=== PATIENT | female | born 1960 | race Caucasian/White ===

== ENCOUNTER 2020-01-21 09:18 | Emergency (ER) | payer OTHER ==
--- NOTE | 2020-01-21 09:20 | ERPHSYRPT ---
- History of Present Illness Time Seen by Provider: 01/21/20 09:20 Source: patient Exam Limitations: no limitations Physician History: This is a 59-year-old white female who fell down her stairs approximately 820 this morning onto her buttocks. She does not complain of any buttock pain belly pain or back pain. She has no neck pain no headache. Her primary complaint is she felt a pop in the anterior sternum and has had pain since that fall. Patient did not have any chest pain history prior to that fall. It hurts to take a deep breath in. Patient is very anxious. Patient takes Dilaudid orally each day. She is not taking any daily. She also takes Phenergan on a daily basis. Occurred: this morning Reason for Fall: slipped Injuries/Pain Location: chest (Anterior midline sternum) Loss of Consciousness: no loss of consciousness Quality: sharpness, stabbing Severity of Pain-Max: moderate Severity of Pain-Current: moderate Associated Symptoms (Fall): chest pain Allergies/Adverse Reactions: No Known Drug Allergies Allergy (Verified 01/21/20 09:53) Home Medications: Gabapentin 600 mg PO TID 01/21/20 [History] Hydromorphone HCl [Dilaudid] 16 mg PO HS 01/21/20 [History] Promethazine HCl 12.5 mg PO TID PRN 01/21/20 [History] Tapentadol HCl [Nucynta] 300 mg PO BID 01/21/20 [History] Travel Risk - International Travel Have you traveled outside of the country in past 3 weeks: No - Coronavirus Screening Are you exhibiting any of the following symptoms?: No Close contact with a COVID-19 positive Pt in past 14-21 Days: No - Review of Systems Constitutional: No Symptoms Eyes: No Symptoms Ears, Nose, & Throat: No Symptoms Respiratory: No Symptoms Cardiac: Chest Pain Abdominal/Gastrointestinal: No Symptoms Genitourinary Symptoms: No Symptoms Musculoskeletal: Fall Skin: No Symptoms Neurological: No Symptoms Psychological: No Symptoms Endocrine: No Symptoms Hematologic/Lymphatic: No Symptoms Immunological/Allergic: No Symptoms All Other Systems: Reviewed and Negative - Past Medical History Pertinent Past Medical History: Yes Neurological History: Other Cardiac History: No Pertinent History Respiratory History: No Pertinent History Endocrine Medical History: No Pertinent History Musculoskeletal History: Other Other Medical History: ANEMIA - BETATHALLACYEMIA MINOR. SCOLISOS - Nursing Vital Signs Nursing Vital Signs: Initial Vital Signs Temperature 97.0 F 01/21/20 09:39 Pulse Rate 90 01/21/20 09:39 Blood Pressure 139/83 01/21/20 09:39 O2 Sat by Pulse Oximetry 96 01/21/20 09:39 Pain Scale Pain Intensity 8 - [place] Coma Score Best Eye Response ([place]): (4) open spontaneously Best Verbal Response ([place]): (5) oriented Best Motor Response ([place]): (6) obeys commands [place] Total: 15 - Physical Exam General Appearance: mild distress, alert, anxiety Head Injury: no evidence of injury Eye Exam: PERRL/EOMI, eyes nml inspection ENT Exam: airway nml, nml ext.inspection Neck Exam: supple, trachea midline, full range of motion, normal alignment, normal inspection Respiratory/Chest Exam: chest tenderness, normal breath sounds, other ( Palpable tenderness present along the distribution of the anterior sternum), No respiratory distress, No crepitus, No rib tenderness, No palpable fracture Cardiovascular Exam: normal heart sounds, regular rate/rhythm, normal peripheral pulses Gastrointestinal Exam: soft, normal bowel sounds, No tenderness Rectal Exam: not done Back Exam: normal inspection, normal range of motion, No CVA tenderness, No vertebral tenderness Extremity Exam: normal inspection, normal range of motion, capillary refill <3 sec, pelvis stable Neurologic Exam: alert, oriented x 3, cooperative, selector packer II-XII nml as tested, normal mood/affect, nml cerebellar function, nml station & gait, sensation nml Skin Exam: normal color, warm, dry SpO2 Interpretation: normal O2 Delivery: Room Air - Course Nursing assessment & vital signs reviewed: Yes EKG Interpreted by Me: RATE (72), Sinus Rhythm, NORMAL AXIS, NORMAL INTERVALS, NORMAL QRS Ordered Tests: Active Orders 24 hr Category Date Time Status CHEST 2 VIEWS (PA AND LAT) Stat Exams 01/21/20 10:03 Completed Medication Summary Discontinued Medications Generic Name Dose Route Start Last Admin Trade Name Freq PRN Reason Stop Dose Admin Hydromorphone HCl 1 mg 01/21/20 10:02 01/21/20 10:08 Hydromorphone 1 Mg/Ml Injection IM 01/21/20 10:03 1 mg STAT ONE Administration Hydromorphone HCl Confirm 01/21/20 10:06 Hydromorphone 1 Mg/Ml Injection Administered 01/21/20 10:07 Dose 1 mg .ROUTE .STK-MED ONE Promethazine HCl 25 mg 01/21/20 10:02 01/21/20 10:07 Phenergan 25 Mg Inj IM 01/21/20 10:03 25 mg STAT ONE Administration Promethazine HCl Confirm 01/21/20 10:05 Phenergan 25 Mg Inj Administered 01/21/20 10:06 Dose 25 mg .ROUTE .STK-MED ONE - Departure Departure Disposition: Home Clinical Impression: Musculoskeletal pain Condition: Stable Critical Care Time: No Referrals: BAIRON HICKEY MD [Primary Care Provider] - Additional Instructions: Take your medication as prescribed. Follow-up with your primary care doctor for further management
[2020-01-21] MEDS ORDERED: Phenergan 25 MG INJ IM ONE (10:02)
[2020-01-21] MEDS ORDERED: Hydromorphone 1 mg/ml Injection IM ONE (10:02)
[2020-01-21] MEDS ORDERED: Phenergan 25 MG INJ ONE (10:05)
[2020-01-21] MEDS ORDERED: Hydromorphone 1 mg/ml Injection ONE (10:06)
--- NOTE | 2020-01-21 10:28 | XRAY ---
Indication: Sternal pain following fall. Comparison: June 25, 2018. PA/lateral chest demonstrates new minimal lingula subsegmental atelectasis/scarring. Remaining heart and lungs normal. Bony thorax intact again with double curvature scoliosis.
[2020-01-21 10:56] VITALS: BP 168/86; PULSE 88; O2SAT 98
== END 2020-01-21 10:55 | disposition home or self-care (01) ==
LOC: ED 09:18
DX: M79.18 Myalgia, other site (principal)
CPT/HCPCS: 71046; 96372; 99284; J1170; J2550

== ENCOUNTER 2020-05-03 11:51 | Emergency (ER) | payer OTHER ==
[2020-05-03 12:06] VITALS: BP 181/91; PULSE 86; O2SAT 97
--- NOTE | 2020-05-03 12:40 | ERPHSYRPT ---
- History of Present Illness Time Seen by Provider: 05/03/20 12:30 Source: patient Patient Subjective Stated Complaint: pt here for wound check, she was in PT and states they where unable to clean wound due to pain , she fell apr 20. pt has puncture wound to left elbow Triage Nursing Assessment: pt alert, walked in, resp easy, skin w/d/p. face mask in place, has punture wound left elbow with slight swelling Physician History: Is a 59-year-old female who presents with a chief complaint of needing a wound check. Of note, the patient reportedly had a mechanical fall and received a laceration to the medial aspect of her left elbow back in March. Since that time, she has been seen by her primary care provider her who referred her to the wound clinic which she was seen today. The physical therapist at the wound clinic reportedly irrigated the wound and was able to take a Q-tip and track about an inch and a half according to the physical therapist in the wound I think she may have hit the ulnar nerve. The patient then refused to letter packed the wound and the physical therapist thought it was best she come to the emergency department to see if I could "numb up the area". Fever, purulent drainage, significant cellulitis, induration or fluctuance. The patient showed me a picture of the wound from when it initially occurred and it appears to be healing well Allergies/Adverse Reactions: No Known Drug Allergies Allergy (Verified 05/03/20 12:06) Home Medications: Gabapentin 600 mg PO TID 01/21/20 [History] Hydromorphone HCl [Dilaudid] 16 mg PO HS 01/21/20 [History] Promethazine HCl 12.5 mg PO TID PRN 01/21/20 [History] Tapentadol HCl [Nucynta] 300 mg PO BID 01/21/20 [History] Mupirocin [Bactroban OINTMENT] 1 ea BID 05/03/20 [History] Hx Tetanus, Diphtheria Vaccination/Date Given: Yes (2010) Hx Influenza Vaccination/Date Given: No Hx Pneumococcal Vaccination/Date Given: No Immunizations Up to Date: Yes Travel Risk - International Travel Have you traveled outside of the country in past 3 weeks: No - Coronavirus Screening Are you exhibiting any of the following symptoms?: No Close contact with a COVID-19 positive Pt in past 14-21 Days: No - Review of Systems Constitutional: No Fever, No Chills Skin: Other (Wound to left elbow) All Other Systems: Reviewed and Negative - Past Medical History Pertinent Past Medical History: Yes Neurological History: Other ENT History: Other Cardiac History: No Pertinent History Respiratory History: No Pertinent History Endocrine Medical History: No Pertinent History Musculoskeletal History: Other Other Medical History: ANEMIA - BETATHALLACYEMIA MINOR, poor vison. SCOLISOS - Past Surgical History Past Surgical History: Yes Gastrointestinal: Appendectomy Female Surgical History: Hysterectomy Other Surgical History: coils placed in head for aneurysm, bladder sling mesh - Social History Smoking Status: Never smoker Exposure to second hand smoke: No Drug Use: none Patient Lives Alone: No - Female History Hx Last Menstrual Period: post Hx Now: No - Nursing Vital Signs Nursing Vital Signs: Initial Vital Signs Temperature 97.2 F 05/03/20 11:56 Pulse Rate 86 05/03/20 11:56 Respiratory Rate 18 05/03/20 11:56 Blood Pressure 181/91 05/03/20 11:56 O2 Sat by Pulse Oximetry 97 05/03/20 11:56 Pain Scale Pain Intensity 5 - Physical Exam General Appearance: no apparent distress, alert Neck Exam: normal inspection Respiratory Exam: normal breath sounds Gastrointestinal/Abdomen Exam: soft Pelvic Exam: not done Back Exam: normal inspection Extremity Exam: normal inspection Neurologic Exam: alert, oriented x 3 Skin Exam: normal color, warm, dry, other (1-2 cm deep wound noted to the medial aspect of the L elbow around the cubital tunnel region.), No rash SpO2 Interpretation: normal SpO2: 97 O2 Delivery: Room Air - Course Nursing assessment & vital signs reviewed: Yes - Progress Progress: unchanged Progress Note: 05/04/20 10:38 Nontoxic in appearance. There appears to be no evidence of surrounding infection. I do not feel that locally anesthetizing the region will be of any benefit. After talking to PT that was cleaning the wound she informed me she may have "hit" the ulnar nerve, which local anesthesia will be of no benefit if PT's intent was for me to anesthetize this area. The patient can be discharged back to to the wound clinic from my standpoint to have her wound dressed. Counseled pt/family regarding: diagnosis, need for follow-up - Departure Departure Disposition: Home Clinical Impression: Visit for wound check Condition: Stable Critical Care Time: No Referrals: NATALIA CHAMBERS [Primary Care Provider] - Instructions: Wound Care (DC)
== END 2020-05-03 12:53 | disposition home or self-care (01) ==
LOC: ED 11:51
DX: Z48.00 Encounter for change or removal of nonsurgical wound dressing (principal)
CPT/HCPCS: 99283

== ENCOUNTER 2020-07-04 07:28 | Inpatient (IN) | payer OTHER ==
[2020-07-04] MEDS ORDERED: SUBLIMAZE 100 MCG/2 ML IV ONE (07:34)
[2020-07-04] MEDS ORDERED: Sodium Chloride 0.9% 1000 ML 1,000 ML IV STA (07:34)
[2020-07-04] MEDS ORDERED: Zofran 4 MG/2 ML VIAL IV ONE ×2 (07:34→10:38)
[2020-07-04] MEDS ORDERED: Sodium Chloride 0.9% 1000 ML 1,000 ML ONE (07:41)
[2020-07-04] MEDS ORDERED: Zofran 4 MG/2 ML VIAL ONE ×2 (07:41→10:38)
[2020-07-04] MEDS ORDERED: SUBLIMAZE 100 MCG/2 ML ONE (07:41)
--- NOTE | 2020-07-04 08:01 | ERPHSYRPT ---
- History of Present Illness Time Seen by Provider: 07/04/20 07:58 Historian: patient Exam Limitations: no limitations Patient Subjective Stated Complaint: abd pain, nausea Triage Nursing Assessment: pt to ED c/o abd pain 10/10 and nauesa onset 0300 this am. pt reports pain progressively worsened since early this am. denies emesis at this time. reports last BM was 07/01/20. states she is still passing gas. pt is thrashing in bed and states "there is something inside me." unable to listen to bowel sounds effectively d/t pain with any pressure on abd. also reports pain radiating to back. Physician History: Patient is 59-year-old female came to the emergency room with sudden onset of nausea vomiting abdominal pain started around 3:00 in the morning and patient came to the emergency room around 8:00 in the morning. Patient is denying any fever chills diarrhea. Patient ate peanut butter sandwich last night. She did not have any symptoms since 3:00 in the morning. Patient denies any other chest pain shortness of breath generalized body ache fever chills. Patient does not have a close exposure to Covid or patient does not have a Covid vaccination. Timing/Duration: today Activities at Onset: none Quality: fullness Abdominal Pain Onset Location: generalized abdomen Pain Radiation: no radiation Severity of Pain-Max: moderate Severity of Pain-Current: moderate Modifying Factors: Improves With: nothing Associated Symptoms: nausea Previous symptoms: no prior history Allergies/Adverse Reactions: No Known Drug Allergies Allergy (Verified 05/03/20 12:06) Home Medications: Gabapentin 600 mg PO TID 01/21/20 [History] Hydromorphone HCl [Dilaudid] 16 mg PO HS 01/21/20 [History] Promethazine HCl 12.5 mg PO TID PRN 01/21/20 [History] Tapentadol HCl [Nucynta] 300 mg PO BID 01/21/20 [History] Mupirocin [Bactroban OINTMENT] 1 ea BID 05/03/20 [History] Hx Tetanus, Diphtheria Vaccination/Date Given: Yes (2010) Hx Influenza Vaccination/Date Given: Yes Hx Pneumococcal Vaccination/Date Given: No Immunizations Up to Date: Yes Travel Risk - International Travel Have you traveled outside of the country in past 3 weeks: No - Coronavirus Screening Are you exhibiting any of the following symptoms?: No Close contact with a COVID-19 positive Pt in past 14-21 Days: No - Vaccine Status Have you recieved a Covid-19 vaccination: No - Review of Systems Constitutional: No Fever, No Chills Eyes: No Symptoms Ears, Nose, & Throat: No Symptoms Respiratory: No Cough, No Dyspnea Cardiac: No Chest Pain, No Edema, No Syncope Abdominal/Gastrointestinal: Abdominal Pain, Nausea, No Vomiting, No Diarrhea Genitourinary Symptoms: No Dysuria Musculoskeletal: No Back Pain, No Neck Pain Skin: No Rash Neurological: No Dizziness, No Focal Weakness, No Sensory Changes Psychological: No Symptoms Endocrine: No Symptoms All Other Systems: Reviewed and Negative - Past Medical History Pertinent Past Medical History: Yes Neurological History: Other ENT History: Other Cardiac History: No Pertinent History Respiratory History: No Pertinent History Endocrine Medical History: No Pertinent History Musculoskeletal History: Other Other Medical History: ANEMIA - BETATHALLACYEMIA MINOR, poor vison. SCOLISOS - Past Surgical History Past Surgical History: Yes Gastrointestinal: Appendectomy Female Surgical History: Hysterectomy Other Surgical History: coils placed in head for aneurysm, bladder sling mesh - Social History Smoking Status: Never smoker Exposure to second hand smoke: No Drug Use: none Patient Lives Alone: No - Nursing Vital Signs Nursing Vital Signs: Initial Vital Signs Temperature 97.2 F 07/04/20 07:32 Pulse Rate 80 07/04/20 07:32 Respiratory Rate 22 07/04/20 07:32 Blood Pressure 144/95 07/04/20 07:32 O2 Sat by Pulse Oximetry 99 07/04/20 07:32 Pain Scale Pain Intensity 10 - Physical Exam General Appearance: no apparent distress, alert Eye Exam: PERRL/EOMI, eyes nml inspection Ears, Nose, Throat Exam: normal ENT inspection, pharynx normal, moist mucous membranes Neck Exam: normal inspection, non-tender, supple, full range of motion Respiratory Exam: normal breath sounds, lungs clear, No respiratory distress Cardiovascular Exam: regular rate/rhythm, normal heart sounds Gastrointestinal/Abdomen Exam: soft, normal bowel sounds, tenderness (generalised), distention, No mass, No guarding, No ecchymosis, No pulsatile mass, No rebound, No hernia, No hepatomegaly, No organomegaly, No splenomegaly, No bruit Pelvic Exam: not done Rectal Exam: deferred Back Exam: normal inspection, normal range of motion, No CVA tenderness, No vertebral tenderness Extremity Exam: normal inspection, normal range of motion, pelvis stable Neurologic Exam: alert, oriented x 3, cooperative, normal mood/affect, nml cerebellar function, sensation nml, No motor deficits Skin Exam: normal color, warm, dry SpO2: 99 - Course Nursing assessment & vital signs reviewed: Yes EKG Interpreted by Me: Sinus Rhythm - Radiology Exams Abdomen X-ray Interpretation: Reviewed by me, Negative (nonspecific gas pattern) Ordered Tests: Active Orders 24 hr Category Date Time Status EKG-ER Only STAT Care 07/04/20 07:34 Active IV Insertion STAT Care 07/04/20 07:34 Active ABDOMEN AND PELVIS W/0 CONTRAS [CT] Stat Exams 07/04/20 08:42 Taken OBSTR/ACUTE ABDOMEN SERIES Stat Exams 07/04/20 07:35 Completed AMYLASE Stat Lab 07/04/20 07:34 Completed CBC W DIFF Stat Lab 07/04/20 07:34 Completed CMP Stat Lab 07/04/20 07:34 Completed LIPASE Stat Lab 07/04/20 07:34 Completed Lactic Acid Stat Lab 07/04/20 07:56 Completed Lactic Acid Stat Lab 07/04/20 09:59 Received Manual Differential NC Stat Lab 07/04/20 07:34 Completed TROPONIN Stat Lab 07/04/20 07:34 Completed UA W/RFX UR CULTURE Stat Lab 07/04/20 08:23 Ordered Urine Triage Profile Stat Lab 07/04/20 08:23 Completed Oxygen Oxymask LPM 4 lpm RT 07/04/20 08:49 Active Medication Summary Discontinued Medications Generic Name Dose Route Start Last Admin Trade Name Sadie PRN Reason Stop Dose Admin Diphenhydramine HCl 25 mg 07/04/20 08:41 07/04/20 08:44 Benadryl 50 Mg/Ml IV 07/04/20 08:42 25 mg STAT ONE Administration Diphenhydramine HCl Confirm 07/04/20 08:43 Benadryl 50 Mg/Ml Administered 07/04/20 08:44 Dose 50 mg .ROUTE .STK-MED ONE Fentanyl Citrate 50 mcg 07/04/20 07:34 07/04/20 07:47 Sublimaze 100 Mcg/2 Ml IV 07/04/20 07:35 50 mcg STAT ONE Administration Fentanyl Citrate Confirm 07/04/20 07:41 Sublimaze 100 Mcg/2 Ml Administered 07/04/20 07:42 Dose 100 mcg .ROUTE .STK-MED ONE Sodium Chloride 1,000 mls @ 999 mls/hr 07/04/20 07:34 07/04/20 07:47 Sodium Chloride 0.9% 1000 Ml IV 07/04/20 08:34 999 mls/hr .Q1H1M STA Administration Sodium Chloride Confirm 07/04/20 07:41 Sodium Chloride 0.9% 1000 Ml Administered 07/04/20 07:42 Dose 1,000 mls @ ud .ROUTE .STK-MED ONE Lorazepam 2 mg 07/04/20 08:41 07/04/20 08:45 Ativan 2 Mg/1 Ml Vial IV 07/04/20 08:42 2 mg STAT ONE Administration Lorazepam Confirm 07/04/20 08:43 Ativan 2 Mg/1 Ml Vial Administered 07/04/20 08:44 Dose 2 mg .ROUTE .STK-MED ONE Magnesium Citrate 296 ml 07/04/20 08:10 07/04/20 08:11 Citroma 296 Ml PO 07/04/20 08:11 296 ml STAT ONE Administration Magnesium Citrate Confirm 07/04/20 08:10 Citroma 296 Ml Administered 07/04/20 08:11 Dose 296 ml .ROUTE .STK-MED ONE Naloxone HCl 2 mg 07/04/20 08:18 07/04/20 08:35 Narcan 2 Mg/2 Ml IV 07/04/20 08:19 2 mg STAT ONE Administration Naloxone HCl Confirm 07/04/20 08:39 Narcan 2 Mg/2 Ml Administered 07/04/20 08:40 Dose 2 mg .ROUTE .STK-MED ONE Ondansetron HCl 4 mg 07/04/20 07:34 07/04/20 07:47 Zofran 4 Mg/2 Ml Vial IV 07/04/20 07:35 4 mg STAT ONE Administration Ondansetron HCl Confirm 07/04/20 07:41 Zofran 4 Mg/2 Ml Vial Administered 07/04/20 07:42 Dose 4 mg .ROUTE .STK-MED ONE Lab/Rad Data: Laboratory Result Diagrams 07/04/20 07:34 07/04/20 07:34 Laboratory Results 07/04/20 07/04/20 07/04/20 Range/Units 08:23 07:56 07:34 WBC (4.0-10.5) K/mm3 RBC (4.1-5.4) M/mm3 Hgb (12.0-16.0) gm/dl Hct (35-47) % MCV (78-100) fl MCH (26-32) pg MCHC (32-36) g/dl RDW (11.5-14.0) % Plt Count (150-450) K/mm3 Sodium 139 (137-145) mmol/L Potassium 3.4 L (3.5-5.1) mmol/L Chloride 100 (98-107) mmol/L Carbon Dioxide 24 (22-30) mmol/L Anion Gap 18.1 H (5-15) MEQ/L BUN 6 L (7-17) mg/dL Creatinine 0.62 (0.52-1.04) mg/dL Estimated GFR > 60.0 ML/MIN Glucose 136 H (74-106) mg/dL Lactic Acid 4.6 H (0.4-2.0) Calcium 9.5 (8.4-10.2) mg/dL Total Bilirubin 1.10 (0.2-1.3) mg/dL AST 68 H (14-36) U/L ALT 46 H (0-35) U/L Alkaline Phosphatase 113 (38-126) U/L Troponin I < 0.012 (0.000-0.034) ng/mL Serum Total Protein 8.0 (6.3-8.2) g/dL Albumin 4.2 (3.5-5.0) g/dL Amylase 257 H (30-110) U/L Lipase 4280 H (23-300) U/L Urine Opiates Level POSITIVE (NEGATIVE) Ur Methadone NEGATIVE (NEGATIVE) Urine Barbiturates NEGATIVE (NEGATIVE) Ur Phencyclidine (PCP) NEGATIVE (NEGATIVE) Urine Amphetamine NEGATIVE (NEGATIVE) U Benzodiazepine Level NEGATIVE (NEGATIVE) Urine Cocaine NEGATIVE (NEGATIVE) Urine Marijuana (THC) NEGATIVE (NEGATIVE) 07/04/20 Range/Units 07:34 WBC 19.2 H (4.0-10.5) K/mm3 RBC 6.27 H* (4.1-5.4) M/mm3 Hgb 13.0 (12.0-16.0) gm/dl Hct 40.4 (35-47) % MCV 64.4 L (78-100) fl MCH 20.7 L (26-32) pg MCHC 32.2 (32-36) g/dl RDW 17.9 H (11.5-14.0) % Plt Count 458 H (150-450) K/mm3 Sodium (137-145) mmol/L Potassium (3.5-5.1) mmol/L Chloride (98-107) mmol/L Carbon Dioxide (22-30) mmol/L Anion Gap (5-15) MEQ/L BUN (7-17) mg/dL Creatinine (0.52-1.04) mg/dL Estimated GFR ML/MIN Glucose (74-106) mg/dL Lactic Acid (0.4-2.0) Calcium (8.4-10.2) mg/dL Total Bilirubin (0.2-1.3) mg/dL AST (14-36) U/L ALT (0-35) U/L Alkaline Phosphatase (38-126) U/L Troponin I (0.000-0.034) ng/mL Serum Total Protein (6.3-8.2) g/dL Albumin (3.5-5.0) g/dL Amylase (30-110) U/L Lipase (23-300) U/L Urine Opiates Level (NEGATIVE) Ur Methadone (NEGATIVE) Urine Barbiturates (NEGATIVE) Ur Phencyclidine (PCP) (NEGATIVE) Urine Amphetamine (NEGATIVE) U Benzodiazepine Level (NEGATIVE) Urine Cocaine (NEGATIVE) Urine Marijuana (THC) (NEGATIVE) - Progress Progress: improved, pain not gone completely Discussed with : Kevin Will see patient in: hospital (observation) Counseled pt/family regarding: drug and/or alcohol abuse, lab results, diagnosis, need for follow-up, rad results, smoking cessation - Departure Departure Disposition: Observation Clinical Impression: Idiopathic acute pancreatitis Qualifiers: Acute pancreatitis complication: infected necrosis Qualified Code(s): K85.02 - Idiopathic acute pancreatitis with infected necrosis Condition: Fair Critical Care Time: Yes Critical Care Time(excluding separately billable procedures): Critical 30-74 mins Referrals: NATALIA CHAMBERS [Primary Care Provider] -
[2020-07-04] MEDS ORDERED: CITROMA 296 ML PO ONE (08:10)
[2020-07-04] MEDS ORDERED: CITROMA 296 ML ONE (08:10)
[2020-07-04 08:17] LABS: ALBUMIN 4.2 g/dL (3.5-5.0); ALKALINE PHOSPHATASE 113 U/L (38-126); AMYLASE 257 U/L (30-110); ANION GAP 18.1 MEQ/L (5-15); BLOOD UREA NITROGEN 6 mg/dL (7-17); CHLORIDE 100 mmol/L (98-107); Calcium 9.5 mg/dL (8.4-10.2); Carbon Dioxide 24 mmol/L (22-30); Creatinine 1 0.62 mg/dL (0.52-1.04); EST GLOMERULAR FILTRATION RATE > 60.0 ML/MIN; Glucose 136 mg/dL (74-106); Potassium 3.4 mmol/L (3.5-5.1); SGOT/AST 68 U/L (14-36); SGPT/ALT 46 U/L (0-35); SODIUM 139 mmol/L (137-145); TROPONIN < 0.012 ng/mL (0.000-0.034)
[2020-07-04] MEDS ORDERED: NARCAN 2 MG/2 ML IV ONE (08:18)
--- NOTE | 2020-07-04 08:23 | XRAY ---
Indication: Abdomen pain. Nausea and vomiting. Comparison: Chest exam January 21, 2020. 2 view abdomen nonacute and nonobstructed. No free air. Solid organs unremarkable. Osseous structures demonstrates moderate/significant double curvature thoracolumbar scoliosis. Single AP chest demonstrates stable lingula atelectasis/scarring. Remaining heart and lungs unremarkable. Impression: Negative abdomen. Nonacute 1 view chest with chronic feature. Double curvature scoliosis.
[2020-07-04 08:28] LABS: Hematocrit 40.4 % (35-47); Mean Cell Volume 64.4 fl (78-100); Mean Corpuscular Hemoglobin 20.7 pg (26-32); Mean Corpuscular Hgb Concent. 32.2 g/dl (32-36); Platelet Count 458 K/mm3 (150-450); Red Blood Count 6.27 M/mm3 (4.1-5.4); Red Cell Distribution Width 17.9 % (11.5-14.0); White Blood Count 19.2 K/mm3 (4.0-10.5)
[2020-07-04 08:38] LABS: LIPASE 4280 U/L (23-300)
[2020-07-04] MEDS ORDERED: NARCAN 2 MG/2 ML ONE (08:39)
[2020-07-04] MEDS ORDERED: BENADRYL 50 MG/ML IV ONE (08:41)
[2020-07-04] MEDS ORDERED: Ativan 2 MG/1 ML VIAL IV ONE (08:41)
[2020-07-04] MEDS ORDERED: Ativan 2 MG/1 ML VIAL ONE (08:43)
[2020-07-04] MEDS ORDERED: BENADRYL 50 MG/ML ONE (08:43)
[2020-07-04 09:00] LABS: Amphetamine,Urine NEGATIVE (NEGATIVE); Barbiturate,Urine NEGATIVE (NEGATIVE); Benzodiazepine,Urine NEGATIVE (NEGATIVE); Cocaine,Urine NEGATIVE (NEGATIVE); Methadone,Urine NEGATIVE (NEGATIVE); Opiate,Urine POSITIVE (NEGATIVE); PCP,Urine NEGATIVE (NEGATIVE); THC,Urine NEGATIVE (NEGATIVE)
[2020-07-04 10:10] LABS: BAND 4 % (0.0-2.0); Lymphocytes 6 % (24-44); Monocyte 7 % (0.0-12.0); Neutrophils 83 % (36.0-66.0); Platelet Estimate NORMAL (NORMAL); Total Cells Counted 100
[2020-07-04 10:11] LABS: ANISOCYTOSIS 1+; Hypochromia 2+; Microcytosis 1+
[2020-07-04 10:16] LABS: INFLUENZA A NEGATIVE (NEGATIVE); INFLUENZA B NEGATIVE (NEGATIVE); RESPIRATORY SYNCTIAL VIRUS NEGATIVE (Negative)
[2020-07-04] MEDS: Sodium Chloride 0.9% W/ 20 mEq KCl/LITER 1,000 ML IV SCH ×2 (11:29→21:07)
[2020-07-04] MEDS: PROTONIX 40 MG IV IV SCH (11:35)
[2020-07-04] MEDS: Pepcid 20 MG VIAL IV SCH ×2 (11:36→22:45)
[2020-07-04] MEDS ORDERED: ROCEPHIN 1 Gm-D5w 50 ml Bag** 1 G/50 ML IVPB IV SCH (12:00)
--- NOTE | 2020-07-04 12:23 | PCM.HP ---
History of Present Illness - Chief Complaint Chief Complaint: sudden onset of abdominal pain started around 330am History of Present Illness: is a 59 year old female. Significant past medical history of hypertension narcotic drug abuse started having sudden abdominal pain started around 3:30 in the morning. Patient is complaining of generalized abdominal pain and she states that she feels there is something inside her abdomen. She is also complaining of nausea and constipation. Patient does not have a bowel movement since Sunday. Patient denies any fever chills blood in the urine or stool. - Review of Systems Constitutional: No Fever, No Chills Eyes: No Symptoms Ears, Nose, & Throat: No Symptoms Respiratory: No Cough, No Short Of Breath Cardiac: No Chest Pain, No Edema, No Syncope Abdominal/Gastrointestinal: Abdominal Pain, Nausea, No Vomiting, No Diarrhea Genitourinary Symptoms: No Dysuria Musculoskeletal: No Back Pain, No Neck Pain Skin: No Rash Neurological: No Dizziness, No Focal Weakness, No Sensory Changes Psychological: No Symptoms Endocrine: No Symptoms Hematologic/Lymphatic: No Symptoms Immunological/Allergic: No Symptoms Medications & Allergies Home Medications: Home Medication List Gabapentin 600 mg PO TID 01/21/20 [History Confirmed 05/03/20] Hydromorphone HCl [Dilaudid] 16 mg PO HS 01/21/20 [History Confirmed 05/03/20] Promethazine HCl 12.5 mg PO TID PRN 01/21/20 [History Confirmed 05/03/20] Tapentadol HCl [Nucynta] 300 mg PO BID 01/21/20 [History Confirmed 05/03/20] Mupirocin [Bactroban OINTMENT] 1 ea BID 05/03/20 [History Confirmed 05/03/20] Allergies/Adverse Reactions: Allergies Allergy/AdvReac Type Severity Reaction Status Date / Time No Known Drug Allergies Allergy Verified 05/03/20 12:06 - Past Medical History Past Medical History: Yes Neurological History: Other ENT History: Other Cardiac History: No Pertinent History Respiratory History: No Pertinent History Endocrine Medical History: No Pertinent History Musculoskelatal History: Other Comment: ANEMIA - BETATHALLACYEMIA MINOR, poor vison. SCOLISOS - Past Surgical History Past Surgical History: Yes GI Surgical History: Appendectomy Female Surgical History: Hysterectomy Other Surgical History: coils placed in head for aneurysm, bladder sling mesh - Social History Smoking Status: Never smoker Exposure to second hand smoke: No Alcohol: Weekly Drug Use: none - Physical Exam Vital Signs: Vital Signs - 24 hr Temp Pulse Resp BP Pulse Ox 07/04/20 12:04 98.9 F 96 H 14 129/62 97 07/04/20 10:08 94 H 24 167/83 95 07/04/20 10:03 99 07/04/20 09:45 88 27 H 167/93 97 07/04/20 08:30 94 H 25 H 157/83 95 07/04/20 07:32 97.2 F 80 22 144/95 99 General Appearance: no apparent distress, alert Neurologic Exam: alert, oriented x 3, cooperative, normal mood/affect, nml cerebellar function, nml station & gait, sensation nml, No motor deficits Eye Exam: PERRL/EOMI, eyes nml inspection Ears, Nose, Throat Exam: normal ENT inspection, TMs normal, pharynx normal, moist mucous membranes Neck Exam: normal inspection, non-tender, supple, full range of motion Respiratory Exam: normal breath sounds, lungs clear, No respiratory distress Cardiovascular Exam: regular rate/rhythm, normal heart sounds, normal peripheral pulses Gastrointestinal/Abdomen Exam: soft, tenderness, distention, guarding, other (hypoactive bowel sounds), No mass Back Exam: normal inspection, normal range of motion, No CVA tenderness, No vertebral tenderness Extremity Exam: normal inspection, normal range of motion, pelvis stable Skin Exam: normal color, warm, dry, No rash Lymphatic Exam: No adenopathy Results - Labs Lab/Micro Results: Lab Results-Last 24 Hours 07/04/20 07/04/20 07/04/20 Range/Units 07:34 07:34 07:56 WBC 19.2 H (4.0-10.5) K/mm3 RBC 6.27 H* (4.1-5.4) M/mm3 Hgb 13.0 (12.0-16.0) gm/dl Hct 40.4 (35-47) % MCV 64.4 L (78-100) fl MCH 20.7 L (26-32) pg MCHC 32.2 (32-36) g/dl RDW 17.9 H (11.5-14.0) % Plt Count 458 H (150-450) K/mm3 Segmented Neutrophils 83 H (36.0-66.0) % Band Neutrophils 4 H (0.0-2.0) % Lymphocytes (Manual) 6 L (24-44) % Monocytes (Manual) 7 (0.0-12.0) % Hypochromia 2+ Platelet Estimate NORMAL (NORMAL) RBC Morphology ABNORMAL Anisocytosis 1+ Microcytosis 1+ Sodium 139 (137-145) mmol/L Potassium 3.4 L (3.5-5.1) mmol/L Chloride 100 (98-107) mmol/L Carbon Dioxide 24 (22-30) mmol/L Anion Gap 18.1 H (5-15) MEQ/L BUN 6 L (7-17) mg/dL Creatinine 0.62 (0.52-1.04) mg/dL Estimated GFR > 60.0 ML/MIN Glucose 136 H (74-106) mg/dL Lactic Acid 4.6 H (0.4-2.0) Calcium 9.5 (8.4-10.2) mg/dL Total Bilirubin 1.10 (0.2-1.3) mg/dL AST 68 H (14-36) U/L ALT 46 H (0-35) U/L Alkaline Phosphatase 113 (38-126) U/L Troponin I < 0.012 (0.000-0.034) ng/mL Serum Total Protein 8.0 (6.3-8.2) g/dL Albumin 4.2 (3.5-5.0) g/dL Amylase 257 H (30-110) U/L Lipase 4280 H (23-300) U/L Urine Opiates Level (NEGATIVE) Ur Methadone (NEGATIVE) Urine Barbiturates (NEGATIVE) Ur Phencyclidine (PCP) (NEGATIVE) Urine Amphetamine (NEGATIVE) U Benzodiazepine Level (NEGATIVE) Urine Cocaine (NEGATIVE) Urine Marijuana (THC) (NEGATIVE) Influenza Type A Ag (NEGATIVE) Influenza Type B Ag (NEGATIVE) RSV (PCR) (Negative) SARS-CoV-2 (PCR) (NEGATIVE) 07/04/20 07/04/20 Range/Units 08:23 09:36 WBC (4.0-10.5) K/mm3 RBC (4.1-5.4) M/mm3 Hgb (12.0-16.0) gm/dl Hct (35-47) % MCV (78-100) fl MCH (26-32) pg MCHC (32-36) g/dl RDW (11.5-14.0) % Plt Count (150-450) K/mm3 Segmented Neutrophils (36.0-66.0) % Band Neutrophils (0.0-2.0) % Lymphocytes (Manual) (24-44) % Monocytes (Manual) (0.0-12.0) % Hypochromia Platelet Estimate (NORMAL) RBC Morphology Anisocytosis Microcytosis Sodium (137-145) mmol/L Potassium (3.5-5.1) mmol/L Chloride (98-107) mmol/L Carbon Dioxide (22-30) mmol/L Anion Gap (5-15) MEQ/L BUN (7-17) mg/dL Creatinine (0.52-1.04) mg/dL Estimated GFR ML/MIN Glucose (74-106) mg/dL Lactic Acid (0.4-2.0) Calcium (8.4-10.2) mg/dL Total Bilirubin (0.2-1.3) mg/dL AST (14-36) U/L ALT (0-35) U/L Alkaline Phosphatase (38-126) U/L Troponin I (0.000-0.034) ng/mL Serum Total Protein (6.3-8.2) g/dL Albumin (3.5-5.0) g/dL Amylase (30-110) U/L Lipase (23-300) U/L Urine Opiates Level POSITIVE (NEGATIVE) Ur Methadone NEGATIVE (NEGATIVE) Urine Barbiturates NEGATIVE (NEGATIVE) Ur Phencyclidine (PCP) NEGATIVE (NEGATIVE) Urine Amphetamine NEGATIVE (NEGATIVE) U Benzodiazepine Level NEGATIVE (NEGATIVE) Urine Cocaine NEGATIVE (NEGATIVE) Urine Marijuana (THC) NEGATIVE (NEGATIVE) Influenza Type A Ag NEGATIVE (NEGATIVE) Influenza Type B Ag NEGATIVE (NEGATIVE) RSV (PCR) NEGATIVE (Negative) SARS-CoV-2 (PCR) NEGATIVE (NEGATIVE) - Radiology Impressions Radiology Exams & Impressions: Radiology Procedures Category Date Time Status ABDOMEN AND PELVIS W/0 CONTRAS [CT] Stat preliminary report showed acute pancreatitis Exams 07/04/20 08:42 Taken OBSTR/ACUTE ABDOMEN SERIES Stat Exams 07/04/20 07:35 Completed - Other Procedures and Tests Respiratory Therapy 07/04/20 11:08 Oxygen Oxymask LPM 2 lpm Assessment/Plan (1) Idiopathic acute pancreatitis Current Visit: Yes Status: Acute Qualifiers: Acute pancreatitis complication: infected necrosis Qualified Code(s): K85.02 - Idiopathic acute pancreatitis with infected necrosis Assessment & Plan: Chief Complaint Diagnosis acute pancreatitis Allergies Allergy/AdvReac Type Severity Reaction Status Date / Time No Known Drug Allergies Allergy Verified 05/03/20 12:06 Vital Signs (Last 24 hours) Temp Pulse Resp BP Pulse Ox 07/04/20 12:04 98.9 F 96 H 14 129/62 97 07/04/20 10:08 94 H 24 167/83 95 07/04/20 10:03 99 07/04/20 09:45 88 27 H 167/93 97 07/04/20 08:30 94 H 25 H 157/83 95 07/04/20 07:32 97.2 F 80 22 144/95 99 Current Medications Generic Name Dose Route Start Last Admin Trade Name Freq PRN Reason Stop Dose Admin Docusate Sodium 100 mg 07/04/20 12:00 Colace Liquid 50 Mg/5 Ml PO 08/03/20 11:59 BID LUPE Famotidine 20 mg 07/04/20 12:00 07/04/20 11:36 Pepcid 20 Mg Vial IV 08/03/20 11:59 20 mg Q12HT LUPE Administration Potassium Chloride/Sodium Chloride 1,000 mls @ 120 mls/hr 07/04/20 11:08 07/04/20 11:29 Sodium Chloride 0.9% W/ 20 Meq Kcl/Liter IV 08/03/20 11:07 120 mls/hr .Q8H20M LUPE Administration Ceftriaxone Sodium/Dextrose 1 g in 50 mls @ 100 mls/hr 07/04/20 12:00 07/04/20 11:33 Rocephin 1 Gm-D5w 50 Ml Bag IV 07/07/20 11:59 100 mls/hr Q24H10 LUPE Administration Ondansetron HCl 4 mg 07/04/20 11:08 Zofran 4 Mg/2 Ml Vial IV 08/03/20 11:07 Q6H PRN PRN NAUSEA/VOMITING Pantoprazole Sodium 40 mg 07/04/20 12:00 07/04/20 11:35 Protonix 40 Mg Iv IV 08/03/20 11:59 40 mg Q24H10 LUPE Administration Discontinued Medications Generic Name Dose Route Start Last Admin Trade Name Sadie PRN Reason Stop Dose Admin Diphenhydramine HCl 25 mg 07/04/20 08:41 07/04/20 08:44 Benadryl 50 Mg/Ml IV 07/04/20 08:42 25 mg STAT ONE Administration Diphenhydramine HCl Confirm 07/04/20 08:43 Benadryl 50 Mg/Ml Administered 07/04/20 08:44 Dose 50 mg .ROUTE .STK-MED ONE Fentanyl Citrate 50 mcg 07/04/20 07:34 07/04/20 07:47 Sublimaze 100 Mcg/2 Ml IV 07/04/20 07:35 50 mcg STAT ONE Administration Fentanyl Citrate Confirm 07/04/20 07:41 Sublimaze 100 Mcg/2 Ml Administered 07/04/20 07:42 Dose 100 mcg .ROUTE .STK-MED ONE Sodium Chloride 1,000 mls @ 999 mls/hr 07/04/20 07:34 07/04/20 10:57 Sodium Chloride 0.9% 1000 Ml IV 07/04/20 08:34 Infused .Q1H1M STA Infusion Sodium Chloride Confirm 07/04/20 07:41 Sodium Chloride 0.9% 1000 Ml Administered 07/04/20 07:42 Dose 1,000 mls @ ud .ROUTE .STK-MED ONE Lorazepam 2 mg 07/04/20 08:41 07/04/20 08:45 Ativan 2 Mg/1 Ml Vial IV 07/04/20 08:42 2 mg STAT ONE Administration Lorazepam Confirm 07/04/20 08:43 Ativan 2 Mg/1 Ml Vial Administered 07/04/20 08:44 Dose 2 mg .ROUTE .STK-MED ONE Magnesium Citrate 296 ml 07/04/20 08:10 07/04/20 08:11 Citroma 296 Ml PO 07/04/20 08:11 296 ml STAT ONE Administration Magnesium Citrate Confirm 07/04/20 08:10 Citroma 296 Ml Administered 07/04/20 08:11 Dose 296 ml .ROUTE .STK-MED ONE Naloxone HCl 2 mg 07/04/20 08:18 07/04/20 08:35 Narcan 2 Mg/2 Ml IV 07/04/20 08:19 2 mg STAT ONE Administration Naloxone HCl Confirm 07/04/20 08:39 Narcan 2 Mg/2 Ml Administered 07/04/20 08:40 Dose 2 mg .ROUTE .STK-MED ONE Ondansetron HCl 4 mg 07/04/20 07:34 07/04/20 07:47 Zofran 4 Mg/2 Ml Vial IV 07/04/20 07:35 4 mg STAT ONE Administration Ondansetron HCl Confirm 07/04/20 07:41 Zofran 4 Mg/2 Ml Vial Administered 07/04/20 07:42 Dose 4 mg .ROUTE .STK-MED ONE Ondansetron HCl 4 mg 07/04/20 10:38 07/04/20 10:42 Zofran 4 Mg/2 Ml Vial IV 07/04/20 10:39 4 mg STAT ONE Administration Ondansetron HCl Confirm 07/04/20 10:38 Zofran 4 Mg/2 Ml Vial Administered 07/04/20 10:39 Dose 4 mg .ROUTE .STK-MED ONE Intake & Output (Last 24 hours) 07/02/20 07/03/20 07/04/20 07/05/20 11:59 11:59 11:59 11:59 Weight 59.5 kg Laboratory Results (Last 24 hours) 07/04/20 07/04/20 07/04/20 09:36 08:23 07:56 WBC RBC Hgb Hct MCV MCH MCHC RDW Plt Count Segmented Neutrophils Band Neutrophils Lymphocytes (Manual) Monocytes (Manual) Hypochromia Platelet Estimate RBC Morphology Anisocytosis Microcytosis Sodium Potassium Chloride Carbon Dioxide Anion Gap BUN Creatinine Estimated GFR Glucose Lactic Acid 4.6 H Calcium Total Bilirubin AST ALT Alkaline Phosphatase Troponin I Serum Total Protein Albumin Amylase Lipase Urine Opiates Level POSITIVE Ur Methadone NEGATIVE Urine Barbiturates NEGATIVE Ur Phencyclidine (PCP) NEGATIVE Urine Amphetamine NEGATIVE U Benzodiazepine Level NEGATIVE Urine Cocaine NEGATIVE Urine Marijuana (THC) NEGATIVE Influenza Type A Ag NEGATIVE Influenza Type B Ag NEGATIVE RSV (PCR) NEGATIVE SARS-CoV-2 (PCR) NEGATIVE 07/04/20 07/04/20 07:34 07:34 WBC 19.2 H RBC 6.27 H* Hgb 13.0 Hct 40.4 MCV 64.4 L MCH 20.7 L MCHC 32.2 RDW 17.9 H Plt Count 458 H Segmented Neutrophils 83 H Band Neutrophils 4 H Lymphocytes (Manual) 6 L Monocytes (Manual) 7 Hypochromia 2+ Platelet Estimate NORMAL RBC Morphology ABNORMAL Anisocytosis 1+ Microcytosis 1+ Sodium 139 Potassium 3.4 L Chloride 100 Carbon Dioxide 24 Anion Gap 18.1 H BUN 6 L Creatinine 0.62 Estimated GFR > 60.0 Glucose 136 H Lactic Acid Calcium 9.5 Total Bilirubin 1.10 AST 68 H ALT 46 H Alkaline Phosphatase 113 Troponin I < 0.012 Serum Total Protein 8.0 Albumin 4.2 Amylase 257 H Lipase 4280 H Urine Opiates Level Ur Methadone Urine Barbiturates Ur Phencyclidine (PCP) Urine Amphetamine U Benzodiazepine Level Urine Cocaine Urine Marijuana (THC) Influenza Type A Ag Influenza Type B Ag RSV (PCR) SARS-CoV-2 (PCR) Orders (Last 24 hours) Category Date Time Status Up Ad Sravani ROUTINE Activity 07/04/20 11:08 Active Code Status Order ROUTINE Care 07/04/20 11:08 Active EKG-ER Only STAT Care 07/04/20 07:34 Completed IV Care Q6H Care 07/04/20 11:08 Active IV Insertion STAT Care 07/04/20 07:[address] in Observation ROUTINE Care 07/04/20 11:08 Active Jaye Mast ROUTINE Care 07/04/20 11:08 Active Clear Liquid Diet 07/04/20 Dinner Active ABDOMEN AND PELVIS W/0 CONTRAS [CT] Stat Exams 07/04/20 08:42 Taken OBSTR/ACUTE ABDOMEN SERIES Stat Exams 07/04/20 07:35 Completed AMYLASE Stat Lab 07/04/20 07:34 Completed CBC W DIFF AM.LAB Lab 07/05/20 04:00 Ordered CBC W DIFF Stat Lab 07/04/20 07:34 Completed CMP AM.LAB Lab 07/05/20 04:00 Ordered CMP Stat Lab 07/04/20 07:34 Completed LIPASE Stat Lab 07/04/20 07:34 Completed Lactic Acid AM.LAB Lab 07/05/20 04:00 Ordered Lactic Acid Stat Lab 07/04/20 07:56 Completed Manual Differential NC Stat Lab 07/04/20 07:34 Completed TROPONIN Stat Lab 07/04/20 07:34 Completed UA W/RFX UR CULTURE Stat Lab 07/04/20 08:23 Ordered Urine Triage Profile Stat Lab 07/04/20 08:23 Completed Ceftriaxone 1 GM/50 ML PREMIX* [ROCEPHIN 1 Gm-D5w 50 ml Med 07/04/20 12:00 Active Bag] 1 g in 50 ml IV Q24H10 Diphenhydramine HCl 50 mg/ml [Benadryl 50 mg/ml] Med 07/04/20 08:41 Discontinued 25 mg IV STAT ONE Diphenhydramine HCl 50 mg/ml [Benadryl 50 mg/ml] Med 07/04/20 08:43 Discontinued 50 mg .ROUTE .STK-MED ONE Docusate Sodium 50 mg/5 ml [COLACE Liquid 50 MG/5 ML Med 07/04/20 12:00 Active ] 100 mg PO BID Famotidine 20 mg Vial [Pepcid 20 MG VIAL] Med 07/04/20 12:00 Active 20 mg IV Q12HT Fentanyl Citrate 100 Mcg/2 ml* [Sublimaze 100 Mcg/2 ml* Med 07/04/20 07:41 Discontinued ] 100 mcg .ROUTE .STK-MED ONE Fentanyl Citrate 100 Mcg/2 ml* [Sublimaze 100 Mcg/2 ml* Med 07/04/20 07:34 Discontinued ] 50 mcg IV STAT ONE Lorazepam 2 mg/1 ml [Ativan 2 MG/1 ML VIAL] Med 07/04/20 08:43 Discontinued 2 mg .ROUTE .STK-MED ONE Lorazepam 2 mg/1 ml [Ativan 2 MG/1 ML VIAL] Med 07/04/20 08:41 Discontinued 2 mg IV STAT ONE Magnesium Citrate 296 ml [Citroma 296 ml] Med 07/04/20 08:10 Discontinued 296 ml .ROUTE .STK-MED ONE Magnesium Citrate 296 ml [Citroma 296 ml] Med 07/04/20 08:10 Discontinued 296 ml PO STAT ONE NaCl 0.9% 1000 ml + KCl 20 Meq [Sodium Chloride 0.9% W/ Med 07/04/20 11:08 Active 20 mEq KCl/LITER] 1,000 ml IV 120 mls/hr NaCl 0.9% 1000 ml [Sodium Chloride 0.9% 1000 ML] 1,000 Med 07/04/20 07:41 Discontinued ml .ROUTE UD NaCl 0.9% 1000 ml [Sodium Chloride 0.9% 1000 ML] 1,000 Med 07/04/20 07:34 Discontinued ml IV 999 mls/hr Naloxone HCl 2Mg/2 ml [Narcan 2 mg/2 ml] Med 07/04/20 08:39 Discontinued 2 mg .ROUTE .STK-MED ONE Naloxone HCl 2Mg/2 ml [Narcan 2 mg/2 ml] Med 07/04/20 08:18 Discontinued 2 mg IV STAT ONE Ondansetron HCl 4 mg/2 ml [Zofran 4 MG/2 ML VIAL] Med 07/04/20 07:41 Discontinued 4 mg .ROUTE .STK-MED ONE Ondansetron HCl 4 mg/2 ml [Zofran 4 MG/2 ML VIAL] Med 07/04/20 10:38 Discontinued 4 mg .ROUTE .STK-MED ONE Ondansetron HCl 4 mg/2 ml [Zofran 4 MG/2 ML VIAL] Med 07/04/20 11:08 Active 4 mg IV Q6H PRN PRN Ondansetron HCl 4 mg/2 ml [Zofran 4 MG/2 ML VIAL] Med 07/04/20 07:34 Discontinued 4 mg IV STAT ONE Ondansetron HCl 4 mg/2 ml [Zofran 4 MG/2 ML VIAL] Med 07/04/20 10:38 Discontinued 4 mg IV STAT ONE Pantoprazole 40 mg [Protonix 40 mg IV] Med 07/04/20 12:00 Active 40 mg IV Q24H10 Oxygen Oxymask LPM 2 lpm RT 07/04/20 11:08 Active Transfer Order Routine Transfer 07/04/20 Completed Patient Care Notes (Last 24 hours) 07/04/20 08:50 Respiratory Note by Samantha Overton PT'S O2 SAT ON ROOM AIR WAS 98% BUT PT WAS PLACED ON 4LPM OXYMASK TO HELP WITH ANXIETY/HYPERVENTILATION. Initialized on 07/04/20 08:50 - END OF NOTE Code(s): K85.00 - IDIOPATHIC ACUTE PANCREATITIS WITHOUT NECROSIS OR INFECTION
[2020-07-04] MEDS: Ativan 2 MG/1 ML VIAL IV PRN (13:39)
[2020-07-04] MEDS ORDERED: NON-FORMULARY ITEM (Promethazine Hcl [Promethazine Hcl] 12.5 MG) PO PRN (14:50)
[2020-07-04] MEDS: PHENERGAN 25 MG PO PRN (16:20)
[2020-07-04] MEDS: NEURONTIN 300 MG PO SCH ×3 (16:21→22:55)
[2020-07-04] MEDS: ESTRACE 1 MG PO SCH (16:23)
[2020-07-04] MEDS: COLACE Liquid 50 MG/5 ML PO SCH ×4 (17:00→23:22)
--- NOTE | 2020-07-04 22:46 | XRAY ---
Indication: Abdomen pain. Nausea and vomiting. Multiple contiguous axial images obtained through the abdomen and pelvis without contrast. Comparison: None Lung bases are clear. Heart is not enlarged. Small hiatal hernia. Noncontrasted stomach and bowel loops appear nonobstructed. Appendectomy reported. Minimal sigmoid diverticulosis. Pancreas appears edematous with marked peripancreatic stranding favoring acute pancreatitis. Small free fluid along the colic gutter, left greater than right. No free air. Diffuse fatty liver. Remaining liver, gallbladder, spleen, adrenal glands, kidneys, ureters, bladder, uterus, and aorta appear unremarkable for noncontrast exam. Osseous structures intact with double curvature thoracolumbar scoliosis. Impression: 1. CT features favoring acute pancreatitis with free fluid. No walled off fluid collection or free air. 2. Incidental small hiatal hernia, fatty liver, sigmoid diverticulosis, and scoliosis. Comment: Preliminary interpretation was made by [facility]. No critical discrepancy.
[2020-07-04] MEDS: Zofran 4 MG/2 ML VIAL IV PRN (22:59)
[2020-07-05] MEDS: PHENERGAN 25 MG PO PRN (00:57)
[2020-07-05] MEDS: Ativan 2 MG/1 ML VIAL IV PRN (04:24)
[2020-07-05] MEDS: Sodium Chloride 0.9% W/ 20 mEq KCl/LITER 1,000 ML IV SCH (05:21)
[2020-07-05 05:34] LABS: Hematocrit 36.8 % (35-47); Hemoglobin 11.5 gm/dl (12.0-16.0); Mean Cell Volume 65.5 fl (78-100); Mean Corpuscular Hemoglobin 20.5 pg (26-32); Mean Corpuscular Hgb Concent. 31.3 g/dl (32-36); Platelet Count 311 K/mm3 (150-450); Red Blood Count 5.62 M/mm3 (4.1-5.4); Red Cell Distribution Width 16.6 % (11.5-14.0); White Blood Count 18.7 K/mm3 (4.0-10.5)
[2020-07-05 05:50] LABS: ALKALINE PHOSPHATASE 89 U/L (38-126); BLOOD UREA NITROGEN 13 mg/dL (7-17); CHLORIDE 103 mmol/L (98-107); Calcium 7.9 mg/dL (8.4-10.2); Carbon Dioxide 23 mmol/L (22-30); Creatinine 1 0.73 mg/dL (0.52-1.04); EST GLOMERULAR FILTRATION RATE > 60.0 ML/MIN; Glucose 125 mg/dL (74-106); Potassium 4.5 mmol/L (3.5-5.1); SGOT/AST 67 U/L (14-36); SGPT/ALT 36 U/L (0-35); SODIUM 134 mmol/L (137-145); Total Protein 6.1 g/dL (6.3-8.2)
[2020-07-05 07:33] LABS: BAND 1 % (0.0-2.0); Lymphocytes 11 % (24-44); Monocyte 2 % (0.0-12.0); Neutrophils 86 % (36.0-66.0); Platelet Estimate NORMAL (NORMAL); Total Cells Counted 100
[2020-07-05 07:34] LABS: Toxic Granulation 1+
[2020-07-05] MEDS ORDERED: PHARMACY DOSING REQUIRED: VANCOMYCIN IV STA (08:56)
[2020-07-05] MEDS ORDERED: PHARMACY DOSING REQUEST MC ONE (08:56)
[2020-07-05] MEDS ORDERED: Sodium Chloride 0.9% 1000 ML 1,000 ML IV STA (08:57)
[2020-07-05 09:12] LABS: AMYLASE 253 U/L (30-110)
[2020-07-05 09:19] LABS: LIPASE 2671 U/L (23-300)
[2020-07-05] MEDS: DILAUDID 1 MG/1ML PCA IV PRN (09:24)
[2020-07-05] MEDS ORDERED: ESTRADIOL 0.5 MG PO SCH (10:00)
[2020-07-05] MEDS: Zosyn 3.375 GM Vial 3.375 GM in Sodium Chloride 100ML MINI-BAG PLUS 100 ML IV SCH ×3 (10:03→23:15)
[2020-07-05] MEDS: Zofran 4 MG/2 ML VIAL IV PRN (10:03)
[2020-07-05] MEDS: PROTONIX 40 MG IV IV SCH (10:10)
[2020-07-05] MEDS: Pepcid 20 MG VIAL IV SCH ×2 (10:10→21:52)
[2020-07-05] MEDS: Dextrose 5% -0.45 NaCl 1000 ML 1,000 ML IV SCH ×3 (10:50→21:51)
[2020-07-05 11:23] LABS: Appearance CLEAR (CLEAR); Bilirubin NEGATIVE (NEGATIVE); Blood NEGATIVE Ery/ul (0-5); Epithelial Cells RARE /HPF (FEW); Glucose NEGATIVE (NEGATIVE); Ketones NEGATIVE (NEGATIVE); Leukocyte Esterase NEGATIVE (NEGATIVE); Mucus SLIGHT /HPF (NEGATIVE); Nitrite NEGATIVE (NEGATIVE); Protein,Urine Dip NEGATIVE (Negative); Specific Gravity 1.019 (1.005-1.025); Urobilinogen NEGATIVE mg/dL (0-1)
[2020-07-05] MEDS: VANCOMYCIN 1 GRAM/200 ML BAG 1 GM/200 ML PIGGYBACK IV SCH (11:27)
--- NOTE | 2020-07-05 11:45 | XRAY ---
Indication: Abdomen pain. Two-dimensional gallbladder sonogram performed. Comparison: April 08, 2019. Pancreas not well visualized due to overlying bowel gas. Gallbladder normally distended again with minimal sludge in the dependent portion. No gallstones, wall thickening, or pericholecystic fluid. Common bile duct measures 6.2 mm. No intrahepatic biliary distention. Liver again demonstrates fatty echogenicity without focal solid/cystic hepatic mass or ascites. Right kidney sonographically normal measuring 10.2 cm in length. Impression: Nonvisualization pancreas. Again gallbladder sludge without cholelithiasis/cholecystitis. Fatty liver.
[2020-07-05] MEDS: NEURONTIN 300 MG PO SCH ×3 (13:12→21:52)
[2020-07-05] MEDS: ESTRACE 1 MG PO SCH (13:12)
[2020-07-05] MEDS: COLACE Liquid 50 MG/5 ML PO SCH ×2 (13:12→22:01)
[2020-07-05 13:53] LABS: ALBUMIN 2.6 g/dL (3.5-5.0); BILIRUBIN,TOTAL 1.6 mg/dL (0.2-1.3); Direct Bilirubin 0.2 mg/dL (0.0-0.4); Total Protein 5.4 g/dL (6.3-8.2)
--- NOTE | 2020-07-05 14:42 | CONS ---
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 She said that the pain radiates to her back. She was found to have pancreatitis. PAST MEDICAL/SURGICAL HISTORY: Includes long-term narcotic use and she has a pain management physician in [place]. She has scoliosis. She also has had multiple abdominal surgeries including open appendectomy as a child. Bladder sling surgery, hysterectomy and center cranial aneurysm coiling in 2018. MEDICATIONS: Reviewed in the chart. Medications include Dilaudid, gabapentin, promethazine, Nucynta, mupirocin. ALLERGIES: NKDA. SOCIAL HISTORY: No tobacco use. Positive occasional alcohol use. FAMILY HISTORY: Reviewed. PHYSICAL EXAMINATION: GENERAL: No acute distress. The patient does have abdominal pain. CVS: Regular rate and rhythm. PULMONARY: Nonlabored. ABDOMEN: Soft, positive distention, tender to palpation epigastric. No rebound, no guarding consistent with pancreatitis. She is mildly tender in the left upper and right upper abdomen as well. EXTREMITIES: Normal. LAB DATA AND TESTS: Creatinine 0.73. Yesterday bilirubin was 1.1 and today total bilirubin is 1.6. Alkaline phosphatase 89, AST 67, amylase 253, lipase 2671. White blood count elevated 19. Lactate was 4.8 and now is 2.7. Ultrasound showed gallbladder sludge, no stones. Common bile duct is 6.2 which is normal, non-visualization of the pancreas. CT scan was consistent with pancreatitis. DIAGNOSIS: Pancreatitis. Although there are no definitive gallstones seen there is gallbladder sludge on the ultrasound and so I have a suspicion that this may be gallstone pancreatitis spill but again there were no stones seen officially in the gallbladder. There was just sludge. The patient has an elevated bilirubin mildly as well as elevated lipase. PLAN: NPO. 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 We will send hepatic function panel to follow the bilirubin as well as to get a total and direct bilirubin. The patient is not a candidate for MRCP with her aneurysm coiling. Her common bile duct looks okay on ultrasound and her biliary tree looks okay on ultrasound. However further imaging will be needed if her bilirubin continues to increase. I discussed this with her as well. Possible transfer to [place] pending her laboratory results.
[2020-07-06] MEDS: Dextrose 5% -0.45 NaCl 1000 ML 1,000 ML IV SCH ×3 (04:21→14:51)
[2020-07-06] MEDS: VANCOMYCIN 1 GRAM/200 ML BAG 1 GM/200 ML PIGGYBACK IV SCH (04:21)
[2020-07-06] MEDS: Zosyn 3.375 GM Vial 3.375 GM in Sodium Chloride 100ML MINI-BAG PLUS 100 ML IV SCH ×2 (05:18→11:14)
[2020-07-06 05:32] LABS: ALBUMIN 2.8 g/dL (3.5-5.0); ALKALINE PHOSPHATASE 87 U/L (38-126); ANION GAP 8.3 MEQ/L (5-15); BLOOD UREA NITROGEN 7 mg/dL (7-17); CHLORIDE 102 mmol/L (98-107); Calcium 7.8 mg/dL (8.4-10.2); Carbon Dioxide 24 mmol/L (22-30); Creatinine 1 0.61 mg/dL (0.52-1.04); Direct Bilirubin 0.3 mg/dL (0.0-0.4); EST GLOMERULAR FILTRATION RATE > 60.0 ML/MIN; Glucose 136 mg/dL (74-106); Potassium 4.4 mmol/L (3.5-5.1); SGOT/AST 38 U/L (14-36); SGPT/ALT 28 U/L (0-35); SODIUM 130 mmol/L (137-145); Total Protein 5.9 g/dL (6.3-8.2)
[2020-07-06 05:34] LABS: AMYLASE 96 U/L (30-110); LIPASE 571 U/L (23-300)
[2020-07-06 06:16] LABS: Absolute Neutrophil Ct (ANC) 13.19 (1.4-6.9); BASOPHIL % 0.2 % (0.0-0.4); Basophil (Absolute #) 0.03 (0-0.4); Eosinophil % 1.4 % (0.00-5.0); Eosinophil (Absolute #) 0.23 (0-0.5); Hematocrit 28.8 % (35-47); Lymphocyte (Absolute #) 1.44 (1.0-4.6); Lymphocytes % 8.9 % (24.0-44.0); Mean Cell Volume 67.4 fl (78-100); Mean Corpuscular Hemoglobin 20.8 pg (26-32); Mean Corpuscular Hgb Concent. 30.9 g/dl (32-36); Monocyte (Absolute #) 1.28 (0.0-1.3); Monocytes % 7.9 % (0.0-12.0); Neutrophil % 81.6 % (36.0-66.0); Platelet Count 180 K/mm3 (150-450); Red Blood Count 4.27 M/mm3 (4.1-5.4); Red Cell Distribution Width 15.6 % (11.5-14.0); White Blood Count 16.2 K/mm3 (4.0-10.5)
[2020-07-06 07:33] LABS: Hemoglobin 8.9 gm/dl (12.0-16.0)
[2020-07-06 07:35] LABS: Slide Review 1 YES
[2020-07-06] MEDS ORDERED: Lasix 20 MG/2 ML IV ONE (07:56)
[2020-07-06] MEDS: DILAUDID 1 MG/1ML PCA IV PRN (08:31)
[2020-07-06] MEDS: COLACE Liquid 50 MG/5 ML PO SCH ×2 (09:09→22:26)
[2020-07-06] MEDS: ESTRACE 1 MG PO SCH (09:09)
[2020-07-06] MEDS: Dilaudid 4 MG Tab PO PRN ×2 (09:10→14:52)
[2020-07-06] MEDS: Pepcid 20 MG VIAL IV SCH ×2 (09:10→22:23)
[2020-07-06] MEDS: NEURONTIN 300 MG PO SCH ×3 (09:10→22:26)
[2020-07-06] MEDS: PROTONIX 40 MG IV IV SCH (09:10)
[2020-07-06] MEDS: Zofran 4 MG/2 ML VIAL IV PRN ×2 (09:11→18:09)
--- NOTE | 2020-07-06 09:13 | HP ---
CHIEF COMPLAINT: Abdominal pain and nausea. HISTORY OF PRESENT ILLNESS: The patient is a 59 year-old white female who presented to the emergency room at 0800 hours in the morning on Sunday on 07/04/2020. The patient was complaining of severe abdominal pain which was found to be acute pancreatitis. The patient has never had episode of pancreatitis previously. PAST MEDICAL/SURGICAL HISTORY: Significant for the fact she is in a chronic pain management group in [place]. The patient reports that she has had recently a colonoscopy in [place]. She has beta thalassemia minor type of anemia, scoliosis and poor vision down to 5% in her right eye, according to her. HOME MEDICATIONS: She reports that her home medications currently are gabapentin 600 mg t.i.d., Dilaudid 16 mg at night, Promethazine 12.5 mg t.i.d., Nucynta 300 mg twice a day, mupirocin antibiotic ointment. ALLERGIES: NKDA. PHYSICAL EXAMINATION: The patient's vital signs on admission showed her temperature to be 97.2F, pulse 80, respiratory rate 22 and blood pressure 144/95. O2 saturation 99%. HEENT: Normocephalic, atraumatic. Pupils equal round reactive to light. Extraocular movements intact. Oropharynx is slightly dry. NECK: Supple without lymphadenopathy, thyromegaly or JVD. CHEST: Clear to auscultation. HEART: Regular rate and rhythm. ABDOMEN: Diffusely tender. The patient was writhing around in pain when I saw her initially. EXTREMITIES: Without cyanosis, clubbing or edema. NEUROLOGIC: The patient is alert and oriented x3. No focal deficits were noted. LAB DATA AND TESTS: On patient's initial evaluations CT scan revealed findings consistent for pancreatitis. She had no other observations on the CT scan. She had an ultrasound which showed non-visualization of the pancreas, gallbladder sludge without cholelithiasis or cholecystitis and a fatty liver. The patient's labs initially in the emergency room showed her white count to be 19,200 with hemoglobin of 13.0, PLT count 458,000 with 4 bands and 83 polys. Her COVID test, influenza and RSV were all negative. Her glucose was 136, BUN 6, creatinine 0.62, potassium slightly low at 3.4. Liver enzymes were slightly elevated with ALT 46 and AST 68. Troponin was less than 0.012. She had an amylase of 257, lipase 4280. Her urine drug screen was positive for opiates but otherwise negative. Lactic acid was 4.6 on admission initially. ASSESSMENT: The patient was admitted from the emergency room with pancreatitis complicated by elevation of white count. We will check procalcitonin level. She has been started on antibiotics for the possibility of bacterial infection with the elevated white count with left shift. The patient otherwise had pancreatitis and we obtained a surgical consultation. She will likely need ERCP in the future if she does not respond quickly. She has been made NPO. 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 We will monitor this closely otherwise.
[2020-07-06] MEDS: Ativan 2 MG/1 ML VIAL IV PRN (14:16)
[2020-07-06] MEDS: PHENERGAN 25 MG PO PRN (14:52)
[2020-07-06] MEDS ORDERED: PROVENTIL 2.5 MG/3 ML NEB IH ONE (15:02)
[2020-07-06] MEDS ORDERED: Xopenex 1.25 MG/0.5 ML UD NEBULE IH ONE ×2 (15:05→15:11)
[2020-07-06] MEDS ORDERED: solu-MEDROL 125 MG IV ONE (15:28)
--- NOTE | 2020-07-06 16:47 | XRAY ---
Indication: Worsening abdomen pain and distention. Pancreatitis. Multiple contiguous axial images obtained through the abdomen and pelvis without contrast. Comparison: July 04, 2020. Lung bases demonstrates new small bibasilar effusions with mild compressive atelectasis. Heart is not enlarged. Stable small hiatal hernia. Noncontrasted stomach and bowel loops remain nonobstructed and unremarkable. Small bowel loops are now mildly fluid distended with predominantly synchronous fluid leveling favoring ileus. Ascending and transverse colon also mildly fluid distended with fluid leveling. Stable minimal sigmoid diverticulosis. Grossly stable diffuse pancreatitis with now a tiny pelvic free fluid. No walled off fluid collection or free air. Stable diffuse fatty liver. Remaining gallbladder, spleen, adrenal glands, kidneys, ureters, bladder, uterus, and aorta are unremarkable for noncontrast exam. Impression: 1. New mild fluid distended small bowel loops and right hemicolon with synchronous fluid leveling favoring ileus. 2. Grossly stable acute pancreatitis again with tiny free fluid in the pelvis. 3. Stable incidental small hiatal hernia, fatty liver, and sigmoid diverticulosis.
[2020-07-07] MEDS: Dextrose 5% -0.45 NaCl 1000 ML 1,000 ML IV SCH ×2 (02:28→14:41)
[2020-07-07 04:39] LABS: Absolute Neutrophil Ct (ANC) 12.01 (1.4-6.9); BASOPHIL % 0.1 % (0.0-0.4); Basophil (Absolute #) 0.01 (0-0.4); Eosinophil % 0.1 % (0.00-5.0); Eosinophil (Absolute #) 0.01 (0-0.5); Hemoglobin 8.7 gm/dl (12.0-16.0); Lymphocyte (Absolute #) 0.85 (1.0-4.6); Lymphocytes % 6.3 % (24.0-44.0); Mean Corpuscular Hemoglobin 20.8 pg (26-32); Mean Corpuscular Hgb Concent. 31.1 g/dl (32-36); Monocyte (Absolute #) 0.71 (0.0-1.3); Monocytes % 5.2 % (0.0-12.0); Neutrophil % 88.3 % (36.0-66.0); Platelet Count 283 K/mm3 (150-450); Red Blood Count 4.18 M/mm3 (4.1-5.4); Red Cell Distribution Width 15.6 % (11.5-14.0); White Blood Count 13.6 K/mm3 (4.0-10.5)
[2020-07-07 04:56] LABS: ALKALINE PHOSPHATASE 96 U/L (38-126); ANION GAP 8.5 MEQ/L (5-15); BLOOD UREA NITROGEN 5 mg/dL (7-17); CHLORIDE 102 mmol/L (98-107); Calcium 8.3 mg/dL (8.4-10.2); Carbon Dioxide 29 mmol/L (22-30); EST GLOMERULAR FILTRATION RATE > 60.0 ML/MIN; Glucose 169 mg/dL (74-106); SGOT/AST 27 U/L (14-36); SGPT/ALT 24 U/L (0-35); SODIUM 136 mmol/L (137-145); Total Protein 6.1 g/dL (6.3-8.2)
[2020-07-07 05:04] LABS: Risk Ratio 4.8
[2020-07-07 05:38] LABS: Slide Review 1 YES
[2020-07-07] MEDS: Zofran 4 MG/2 ML VIAL IV PRN ×2 (07:40→14:35)
[2020-07-07] MEDS: Dilaudid 4 MG Tab PO PRN ×2 (07:43→16:03)
[2020-07-07] MEDS: NEURONTIN 300 MG PO SCH ×3 (09:43→22:01)
[2020-07-07] MEDS: ESTRACE 1 MG PO SCH (09:44)
[2020-07-07 09:45] LABS: AMYLASE < 30 U/L (30-110); LIPASE 78 U/L (23-300)
[2020-07-07] MEDS: Pepcid 20 MG VIAL IV SCH ×2 (09:47→22:01)
[2020-07-07] MEDS: PROTONIX 40 MG IV IV SCH (09:52)
[2020-07-07] MEDS: COLACE Liquid 50 MG/5 ML PO SCH ×2 (10:01→22:01)
[2020-07-07 10:05] LABS: Iron 22 ug/dL (37-170); Iron Saturation 8 % (20-39); TIBC 269 ug/dL (265-462)
[2020-07-07] MEDS: PHENERGAN 25 MG PO PRN (11:14)
[2020-07-07] MEDS: Ativan 2 MG/1 ML VIAL IV PRN ×2 (16:36→20:38)
[2020-07-07] MEDS: TYLENOL 325 MG PO PRN (18:24)
[2020-07-08] MEDS: Dilaudid 4 MG Tab PO PRN ×3 (00:03→16:49)
[2020-07-08] MEDS: Zofran 4 MG/2 ML VIAL IV PRN ×2 (01:23→19:56)
[2020-07-08] MEDS: Ativan 2 MG/1 ML VIAL IV PRN ×3 (04:14→13:27)
[2020-07-08] MEDS: Dextrose 5% -0.45 NaCl 1000 ML 1,000 ML IV SCH ×2 (04:21→18:37)
[2020-07-08 05:02] LABS: Hematocrit 29.3 % (35-47); Mean Cell Volume 66.6 fl (78-100); Mean Corpuscular Hemoglobin 20.5 pg (26-32); Mean Corpuscular Hgb Concent. 30.7 g/dl (32-36); Platelet Count 265 K/mm3 (150-450); Red Cell Distribution Width 15.6 % (11.5-14.0); White Blood Count 13.7 K/mm3 (4.0-10.5)
[2020-07-08 05:25] LABS: ALBUMIN 2.7 g/dL (3.5-5.0); ALKALINE PHOSPHATASE 99 U/L (38-126); AMYLASE < 30 U/L (30-110); BLOOD UREA NITROGEN 3 mg/dL (7-17); CHLORIDE 102 mmol/L (98-107); Calcium 8.4 mg/dL (8.4-10.2); Carbon Dioxide 30 mmol/L (22-30); Creatinine 1 0.46 mg/dL (0.52-1.04); EST GLOMERULAR FILTRATION RATE > 60.0 ML/MIN; Glucose 123 mg/dL (74-106); LIPASE 126 U/L (23-300); SGOT/AST 25 U/L (14-36); SGPT/ALT 20 U/L (0-35); SODIUM 135 mmol/L (137-145); Total Protein 5.6 g/dL (6.3-8.2)
[2020-07-08 05:26] LABS: Potassium 3.6 mmol/L (3.5-5.1)
[2020-07-08 05:48] LABS: ANION GAP 6.6 MEQ/L (5-15)
[2020-07-08 05:57] LABS: Slide Review YES
[2020-07-08] MEDS: PROTONIX 40 MG IV IV SCH (10:44)
[2020-07-08] MEDS: Pepcid 20 MG VIAL IV SCH ×2 (10:44→21:41)
[2020-07-08] MEDS: ESTRACE 1 MG PO SCH (10:49)
[2020-07-08] MEDS: NEURONTIN 300 MG PO SCH ×3 (10:49→21:41)
[2020-07-08] MEDS: COLACE Liquid 50 MG/5 ML PO SCH ×2 (11:06→21:55)
--- NOTE | 2020-07-08 12:27 | XRAY ---
Indication: Abdomen pain. Comparison: July 04, 2020. KUB again demonstrates nonspecific nonobstructed bowel gas pattern without focal bowel dilatation or free air. Interval diminished fecal debris. Solid organs unremarkable. Osseous structures intact again with double curvature scoliosis. Impression: Negative KUB.
[2020-07-08] MEDS: TYLENOL 325 MG PO PRN (21:42)
[2020-07-09] MEDS: Dilaudid 4 MG Tab PO PRN (02:21)
[2020-07-09] MEDS: Zofran 4 MG/2 ML VIAL IV PRN ×2 (02:22→08:29)
[2020-07-09] MEDS: PHENERGAN 25 MG PO PRN (05:43)
[2020-07-09 07:17] VITALS: O2SAT 90
[2020-07-09 07:50] VITALS: BP 142/100; PULSE 100
== END 2020-07-09 09:36 | disposition home or self-care (01) | DRG 439 ==
LOC: ED 07:28 → MED SURG 11:01 → OBSVTOIN 07-05 08:00 → MED SURG 07-05 16:15
PROVIDERS: ADMIT General Practice; ATTEND Family Medicine
DX: K85.00 Idiopathic acute pancreatitis without necrosis or infection (principal); K56.7 Ileus, unspecified; R11.2 Nausea with vomiting, unspecified; R10.9 Unspecified abdominal pain; Z79.899 Other long term (current) drug therapy; D50.9 Iron deficiency anemia, unspecified; Z20.828 Contact with and (suspected) exposure to other viral communicable diseases; D56.9 Thalassemia, unspecified; G89.29 Other chronic pain
CPT/HCPCS: 0241U; 36000; 36415; 74018; 74022; 74176; 76705; 80048; 80053; 80061; 80076; 80307; 81001; 82150; 82274; 82728; 83540; 83550; 83605; 83690; 83721; 83880; 84145; 84484; 85025; 85027; 87040; 93005; 94640; 94762; 96360; 96374; 96375; 96376; 99285; 99291; G0378; J0696; J1170; J1200; J1940; J2060; J2310; J2405; J2930; J3010; J7609; A9270-GY; G0328; J3370

== ENCOUNTER 2022-12-26 12:48 | Observation (INO) | payer OTHER ==
--- NOTE | 2022-12-26 12:52 | ERPHSYRPT ---
- History of Present Illness Time Seen by Provider: 12/26/22 12:52 Historian: patient, family Exam Limitations: no limitations Physician History: This 62-year-old white female patient has a history of brain aneurysm status post surgical intervention. She also has had a appendectomy and hysterectomy in the past. Patient also has history of beta thalassemia minor medical issue. Patient presents to the emergency department by the ambulance service secondary to patient having vomiting and writhing around and abdominal pain. In addition, the patient's son called and that the patient stated that she did not want to live. Patient herself states "I wanted to pull the trigger but I could not". Patient has not had her Dilaudid or gabapentin today. Additional history obtained from the paramedics. In addition, independent, additional history was obtained from the patient's son. He and the family are unaware that the patient was on Dilaudid pain medicine. He comments that his mother has been asking him to obtain 1/5 every day of alcohol recently. He states that the patient and her spouse are undergoing a divorce. He also stated that there is a gun at the home and his mom did not pull the trigger because the son took the gun away from her. Timing/Duration: today Activities at Onset: none Quality: aching Abdominal Pain Onset Location: generalized abdomen Pain Radiation: no radiation Severity of Pain-Max: moderate Severity of Pain-Current: moderate Modifying Factors: Improves With: vomiting Associated Symptoms: loss of appetite, nausea, No chest pain, No vomiting Previous symptoms: no prior history Allergies/Adverse Reactions: No Known Drug Allergies Allergy (Verified 12/26/22 13:03) Home Medications: Gabapentin 600 mg PO TID 01/21/20 [History] Hydromorphone HCl [Dilaudid] 8 mg PO QID 01/21/20 [History] Promethazine HCl 12.5 mg PO Q6HPRN PRN 01/21/20 [History] Tapentadol HCl [Nucynta] 100 mg PO Q4-6HPRN PRN 01/21/20 [History] Hx Tetanus, Diphtheria Vaccination/Date Given: Yes (2010) Hx Influenza Vaccination/Date Given: Yes Hx Pneumococcal Vaccination/Date Given: No Travel Risk - International Travel Have you traveled outside of the country in past 3 weeks: No - Coronavirus Screening Are you exhibiting any of the following symptoms?: No Close contact with a COVID-19 positive Pt in past 14-21 Days: No - Vaccine Status Have you recieved a Covid-19 vaccination: No - Review of Systems Constitutional: No Symptoms Eyes: No Symptoms Ears, Nose, & Throat: No Symptoms Respiratory: No Symptoms Cardiac: No Symptoms Abdominal/Gastrointestinal: Abdominal Pain, Nausea, Vomiting, Diarrhea, Appetite Changes Musculoskeletal: No Symptoms Skin: No Symptoms Neurological: No Symptoms Psychological: Suicidal Ideations Endocrine: No Symptoms Hematologic/Lymphatic: No Symptoms Immunological/Allergic: No Symptoms All Other Systems: Reviewed and Negative - Past Medical History Pertinent Past Medical History: Yes Neurological History: Other ENT History: Other Cardiac History: Aneurysm Respiratory History: No Pertinent History Endocrine Medical History: No Pertinent History Musculoskeletal History: Other Other Medical History: ANEMIA - BETATHALLACYEMIA MINOR, poor vison. SCOLIOSIS, EDEMA - Past Surgical History Past Surgical History: Yes Gastrointestinal: Appendectomy Female Surgical History: Hysterectomy, Section Other Surgical History: coils placed in head for aneurysm, bladder sling mesh - Social History Smoking Status: Former smoker Exposure to second hand smoke: No Drug Use: none Patient Lives Alone: No - Nursing Vital Signs Nursing Vital Signs: Initial Vital Signs Temperature 97.0 F 12/26/22 12:48 Pulse Rate 118 H 12/26/22 12:48 Respiratory Rate 24 12/26/22 12:48 Blood Pressure 119/73 12/26/22 12:48 O2 Sat by Pulse Oximetry 96 12/26/22 12:48 Pain Scale Pain Intensity 0 - Physical Exam General Appearance: moderate distress, lethargy (Mildly) Eye Exam: PERRL/EOMI, eyes nml inspection Ears, Nose, Throat Exam: normal ENT inspection, moist mucous membranes Neck Exam: normal inspection, non-tender, supple, full range of motion Respiratory Exam: normal breath sounds, lungs clear, No chest tenderness, No respiratory distress Cardiovascular Exam: tachycardia Gastrointestinal/Abdomen Exam: soft, normal bowel sounds, tenderness (Mild diffuse), guarding (Mild diffuse) Pelvic Exam: not done Rectal Exam: not done Back Exam: normal inspection, normal range of motion, No CVA tenderness, No vertebral tenderness Extremity Exam: normal inspection, normal range of motion, pelvis stable Neurologic Exam: manager mortgage II-XII nml as tested, agitation, intoxicated appearance Skin Exam: normal color, warm, dry SpO2 Interpretation: normal O2 Delivery: Room Air - Course Nursing assessment & vital signs reviewed: Yes EKG Interpreted by Me: RATE (120), Sinus Tach, NORMAL AXIS, NORMAL INTERVALS, NORMAL QRS, Non-specific ST Changes, Other (No acute ischemic changes on today's twelve-lead EKG.) Ordered Tests: Active Orders 24 hr Category Date Time Status Departure Clerk STAT Care 12/26/22 13:04 Active Cath [Catheter-Clinton Guzman] STAT Care 12/26/22 13:22 Active EKG-ER Only STAT Care 12/26/22 13:02 Active IV Insertion STAT Care 12/26/22 13:02 Active IV Insertion-2nd Peripheral STAT Care 12/26/22 13:24 Active POCT Glucose Check STAT Care 12/26/22 13:02 Active ABDOMEN AND PELVIS W/0 CONTRAS [CT] Stat Exams 12/26/22 13:26 Completed HEAD WITHOUT CONTRAST [CT] Stat Exams 12/26/22 13:37 Completed ACETAMINOPHEN Stat Lab 12/26/22 13:25 Completed AMYLASE Stat Lab 12/26/22 13:25 Completed CBC W DIFF Stat Lab 12/26/22 13:25 Completed CMP Stat Lab 12/26/22 13:25 Completed CULTURE,URINE Stat Lab 12/26/22 13:23 Ordered ETHYL ALCOHOL Stat Lab 12/26/22 13:25 Completed LIPASE Stat Lab 12/26/22 13:25 Completed POCT GLUCOSE Stat Lab 12/26/22 13:32 Completed SALICYLATE Stat Lab 12/26/22 13:25 Completed TROPONIN Q4H Lab 12/26/22 13:00 Completed TROPONIN Q4H Lab 12/26/22 18:15 Ordered TROPONIN Q4H Lab 12/26/22 22:15 Ordered UA W/RFX UR CULTURE Stat Lab 12/26/22 13:16 Completed Urine Triage Profile Stat Lab 12/26/22 13:16 Completed Transfer Order Routine Transfer 12/26/22 Ordered Medication Summary Generic Name Dose Route Start Last Admin Trade Name Freq PRN Reason Stop Dose Admin Potassium Chloride/Sodium Chloride 1,000 mls @ 100 mls/hr 12/26/22 15:15 12/26/22 15:18 Sodium Chloride 0.9% W/ 20 Meq Kcl/Liter IV 01/25/23 15:14 100 mls/hr .Q10H LUPE Administration Discontinued Medications Generic Name Dose Route Start Last Admin Trade Name Freq PRN Reason Stop Dose Admin Sodium Chloride 1,000 mls @ 999 mls/hr 12/26/22 13:02 12/26/22 14:21 Sodium Chloride 0.9% 1000 Ml IV 12/26/22 14:02 Infused .Q1H1M STA Infusion Sodium Chloride Confirm 12/26/22 13:12 Sodium Chloride 0.9% 1000 Ml Administered 12/26/22 13:13 Dose 1,000 mls @ ud .ROUTE .STK-MED ONE Lorazepam 1 mg 12/26/22 13:02 12/26/22 13:10 Lorazepam 2 Mg/1 Ml 2 Mg Vial IV 12/26/22 13:03 1 mg STAT ONE Administration Lorazepam Confirm 12/26/22 13:09 Lorazepam 2 Mg/1 Ml 2 Mg Vial Administered 12/26/22 13:10 Dose 2 mg .ROUTE .STK-MED ONE Ondansetron HCl 4 mg 12/26/22 13:02 12/26/22 13:12 Ondansetron Hcl 4 Mg/2 Ml Vial IV 12/26/22 13:03 4 mg STAT ONE Administration Ondansetron HCl Confirm 12/26/22 13:12 Ondansetron Hcl 4 Mg/2 Ml Vial Administered 12/26/22 13:13 Dose 4 mg .ROUTE .STK-MED ONE Pantoprazole Sodium 40 mg 12/26/22 13:02 12/26/22 13:13 Pantoprazole 40 Mg Vial IV 12/26/22 13:03 40 mg STAT ONE Administration Pantoprazole Sodium Confirm 12/26/22 13:12 Pantoprazole 40 Mg Vial Administered 12/26/22 13:13 Dose 40 mg IV .STK-MED ONE Lab/Rad Data: Laboratory Result Diagrams 12/26/22 13:25 12/26/22 13:25 Laboratory Results 12/26/22 12/26/22 12/26/22 Range/Units Unknown 13:32 13:25 WBC (4.0-10.5) x10^3/uL RBC (4.1-5.4) x10^6/uL Hgb (12.0-16.0) g/dL Hct (35-47) % MCV (78-100) fL MCH (26-32) pg MCHC (32-36) g/dL RDW (11.5-14.0) % Plt Count (150-450) x10^3/uL Gran % (36.0-66.0) % Immature Gran % (Auto) (0.00-0.4) % Nucleat RBC Rel Count (0.00-0.1) % Eos # (Auto) (0-0.5) x10^3/uL Immature Gran # (Auto) (0.00-0.03) x10^3u/L Absolute Lymphs (auto) (1.0-4.6) x10^3/uL Absolute Monos (auto) (0.0-1.3) x10^3/uL Absolute Nucleated RBC (0.00-0.01) x10^3u/L Lymphocytes % (24.0-44.0) % Monocytes % (0.0-12.0) % Eosinophils % (0.00-5.0) % Basophils % (0.0-0.4) % Absolute Granulocytes (1.4-6.9) x10^3/uL Basophils # (0-0.4) x10^3/uL Sodium 142 (137-145) mmol/L Potassium 3.3 L (3.5-5.1) mmol/L Chloride 103 (98-107) mmol/L Carbon Dioxide 26 (22-30) mmol/L Anion Gap 16.6 H (5-15) MEQ/L BUN 10 (7-17) mg/dL Creatinine 0.51 L (0.52-1.04) mg/dL Estimated GFR > 60.0 ML/MIN Glucose 84 (74-106) mg/dL POC Glucometer 83 (74 to 106) mg/dL Calcium 8.5 (8.4-10.2) mg/dL Total Bilirubin 0.80 (0.2-1.3) mg/dL AST 56 H (14-36) U/L ALT 34 (0-35) U/L Alkaline Phosphatase 113 (38-126) U/L Troponin I (0.000-0.034) ng/mL Serum Total Protein 7.2 (6.3-8.2) g/dL Albumin 4.0 (3.5-5.0) g/dL Amylase 48 (30-110) U/L Lipase 64 (23-300) U/L Urine Color (Yellow) Urine Appearance (Clear) Urine pH (4.6-8.0) Ur Specific [place] (1.005-1.030) Urine Protein (Negative) Urine Glucose (UA) (Negative) mg/dL Urine Ketones (Negative) Urine Blood (Negative) Urine Nitrite (Negative) Urine Bilirubin (Negative) Urine Urobilinogen (0.2) mg/dL Ur Leukocyte Esterase (Negative) U Hyaline Cast (Auto) (0-2) /LPF Urine Microscopic RBC (0-5) /HPF Urine Microscopic WBC (0-5) /HPF Ur Epithelial Cells (None Seen) /HPF Urine Bacteria (None Seen) /HPF Urine Culture Reflexed (NO) Salicylates < 1.0 L (2-20) mg/dL Urine Opiates Level (NEGATIVE) Ur Methadone (NEGATIVE) Acetaminophen < 10 L (10-30) ug/ml Urine Barbiturates (NEGATIVE) Ur Phencyclidine (PCP) (NEGATIVE) Urine Amphetamine (NEGATIVE) U Benzodiazepine Level (NEGATIVE) Urine Cocaine (NEGATIVE) Urine Marijuana (THC) (NEGATIVE) Ethyl Alcohol 195 H (0-10) mg/dL Influenza Type A Ag NEGATIVE (NEGATIVE) Influenza Type B Ag NEGATIVE (NEGATIVE) RSV (PCR) NEGATIVE (NEGATIVE) SARS-CoV-2 (PCR) NEGATIVE (NEGATIVE) 12/26/22 12/26/22 12/26/22 Range/Units 13:25 13:16 13:16 WBC 8.4 (4.0-10.5) x10^3/uL RBC 5.46 H (4.1-5.4) x10^6/uL Hgb 11.2 L (12.0-16.0) g/dL Hct 35.4 (35-47) % MCV 64.8 L (78-100) fL MCH 20.5 L (26-32) pg MCHC 31.6 L (32-36) g/dL RDW 14.2 H (11.5-14.0) % Plt Count 289 (150-450) x10^3/uL Gran % 58.0 (36.0-66.0) % Immature Gran % (Auto) 0.5 H (0.00-0.4) % Nucleat RBC Rel Count 0.4 H (0.00-0.1) % Eos # (Auto) 0.07 (0-0.5) x10^3/uL Immature Gran # (Auto) 0.04 H (0.00-0.03) x10^3u/L Absolute Lymphs (auto) 2.58 (1.0-4.6) x10^3/uL Absolute Monos (auto) 0.73 (0.0-1.3) x10^3/uL Absolute Nucleated RBC 0.03 H (0.00-0.01) x10^3u/L Lymphocytes % 30.8 (24.0-44.0) % Monocytes % 8.7 (0.0-12.0) % Eosinophils % 0.8 (0.00-5.0) % Basophils % 1.2 (0.0-0.4) % Absolute Granulocytes 4.86 (1.4-6.9) x10^3/uL Basophils # 0.10 (0-0.4) x10^3/uL Sodium (137-145) mmol/L Potassium (3.5-5.1) mmol/L Chloride (98-107) mmol/L Carbon Dioxide (22-30) mmol/L Anion Gap (5-15) MEQ/L BUN (7-17) mg/dL Creatinine (0.52-1.04) mg/dL Estimated GFR ML/MIN Glucose (74-106) mg/dL POC Glucometer (74 to 106) mg/dL Calcium (8.4-10.2) mg/dL Total Bilirubin (0.2-1.3) mg/dL AST (14-36) U/L ALT (0-35) U/L Alkaline Phosphatase (38-126) U/L Troponin I (0.000-0.034) ng/mL Serum Total Protein (6.3-8.2) g/dL Albumin (3.5-5.0) g/dL Amylase (30-110) U/L Lipase (23-300) U/L Urine Color Yellow (Yellow) Urine Appearance Clear (Clear) Urine pH 5.5 (4.6-8.0) Ur Specific [place] 1.010 (1.005-1.030) Urine Protein Negative (Negative) Urine Glucose (UA) Negative (Negative) mg/dL Urine Ketones Trace A (Negative) Urine Blood Negative (Negative) Urine Nitrite Negative (Negative) Urine Bilirubin Negative (Negative) Urine Urobilinogen 0.2 (0.2) mg/dL Ur Leukocyte Esterase Negative (Negative) U Hyaline Cast (Auto) 3-5 A (0-2) /LPF Urine Microscopic RBC 0-2 (0-5) /HPF Urine Microscopic WBC 0-2 (0-5) /HPF Ur Epithelial Cells None Seen (None Seen) /HPF Urine Bacteria None Seen (None Seen) /HPF Urine Culture Reflexed NO (NO) Salicylates (2-20) mg/dL Urine Opiates Level NEGATIVE (NEGATIVE) Ur Methadone NEGATIVE (NEGATIVE) Acetaminophen (10-30) ug/ml Urine Barbiturates NEGATIVE (NEGATIVE) Ur Phencyclidine (PCP) NEGATIVE (NEGATIVE) Urine Amphetamine NEGATIVE (NEGATIVE) U Benzodiazepine Level NEGATIVE (NEGATIVE) Urine Cocaine NEGATIVE (NEGATIVE) Urine Marijuana (THC) POSITIVE (NEGATIVE) Ethyl Alcohol (0-10) mg/dL Influenza Type A Ag (NEGATIVE) Influenza Type B Ag (NEGATIVE) RSV (PCR) (NEGATIVE) SARS-CoV-2 (PCR) (NEGATIVE) 12/26/22 Range/Units 13:00 WBC (4.0-10.5) x10^3/uL RBC (4.1-5.4) x10^6/uL Hgb (12.0-16.0) g/dL Hct (35-47) % MCV (78-100) fL MCH (26-32) pg MCHC (32-36) g/dL RDW (11.5-14.0) % Plt Count (150-450) x10^3/uL Gran % (36.0-66.0) % Immature Gran % (Auto) (0.00-0.4) % Nucleat RBC Rel Count (0.00-0.1) % Eos # (Auto) (0-0.5) x10^3/uL Immature Gran # (Auto) (0.00-0.03) x10^3u/L Absolute Lymphs (auto) (1.0-4.6) x10^3/uL Absolute Monos (auto) (0.0-1.3) x10^3/uL Absolute Nucleated RBC (0.00-0.01) x10^3u/L Lymphocytes % (24.0-44.0) % Monocytes % (0.0-12.0) % Eosinophils % (0.00-5.0) % Basophils % (0.0-0.4) % Absolute Granulocytes (1.4-6.9) x10^3/uL Basophils # (0-0.4) x10^3/uL Sodium (137-145) mmol/L Potassium (3.5-5.1) mmol/L Chloride (98-107) mmol/L Carbon Dioxide (22-30) mmol/L Anion Gap (5-15) MEQ/L BUN (7-17) mg/dL Creatinine (0.52-1.04) mg/dL Estimated GFR ML/MIN Glucose (74-106) mg/dL POC Glucometer (74 to 106) mg/dL Calcium (8.4-10.2) mg/dL Total Bilirubin (0.2-1.3) mg/dL AST (14-36) U/L ALT (0-35) U/L Alkaline Phosphatase (38-126) U/L Troponin I < 0.012 (0.000-0.034) ng/mL Serum Total Protein (6.3-8.2) g/dL Albumin (3.5-5.0) g/dL Amylase (30-110) U/L Lipase (23-300) U/L Urine Color (Yellow) Urine Appearance (Clear) Urine pH (4.6-8.0) Ur Specific [place] (1.005-1.030) Urine Protein (Negative) Urine Glucose (UA) (Negative) mg/dL Urine Ketones (Negative) Urine Blood (Negative) Urine Nitrite (Negative) Urine Bilirubin (Negative) Urine Urobilinogen (0.2) mg/dL Ur Leukocyte Esterase (Negative) U Hyaline Cast (Auto) (0-2) /LPF Urine Microscopic RBC (0-5) /HPF Urine Microscopic WBC (0-5) /HPF Ur Epithelial Cells (None Seen) /HPF Urine Bacteria (None Seen) /HPF Urine Culture Reflexed (NO) Salicylates (2-20) mg/dL Urine Opiates Level (NEGATIVE) Ur Methadone (NEGATIVE) Acetaminophen (10-30) ug/ml Urine Barbiturates (NEGATIVE) Ur Phencyclidine (PCP) (NEGATIVE) Urine Amphetamine (NEGATIVE) U Benzodiazepine Level (NEGATIVE) Urine Cocaine (NEGATIVE) Urine Marijuana (THC) (NEGATIVE) Ethyl Alcohol (0-10) mg/dL Influenza Type A Ag (NEGATIVE) Influenza Type B Ag (NEGATIVE) RSV (PCR) (NEGATIVE) SARS-CoV-2 (PCR) (NEGATIVE) - Progress Progress Note: 12/26/22 13:34 This patient's medical issue is 1 of moderate to high complexity. Level complexity the work-up performed is based on review of the patient's past medical history, review the patient's medication list, review the patient's drug allergy list, history present illness and physical findings on examination. Patient work-up includes placement of intravenous line, infusion of antiemetic of Zofran 4 mg intravenously, infusion of Protonix 40 mg intravenously, infusion of 1 mg Ativan intravenously, infusion of normal saline 1 L, CBC, CMP, urinalysis, salicylate level, alcohol level, acetaminophen level, twelve-lead EKG, CT scan of the abdomen pelvis. We will also obtain a psychiatric co nsultation. 12/26/22 14:56 CT scan of the head without contrast shows no gross acute intracranial ab normality. This was interpreted by the radiologist and I reviewed the impression. CT scan of the abdomen pelvis without contrast shows no evidence for acute intra-abdominal or intrapelvic process. This CT scan was interpreted by the radiologist and I reviewed the impression. 12/26/22 15:[address] Munoz. I reviewed the patient history, the patient complaint, the laboratory and radiographic study work-up with him. I did discuss with him the policy that we typically use here at [facility]. That is, in the event an immediate psychiatric evaluation is not possible secondary to significant alcohol intoxication, we place the patient's in observation to the ICU with a sitter and then repeat labs in the morning and call the telepsych or psychiatric facility for evaluation and transfer. He kindly accepts the patient to place this patient in observation. Counseled pt/family regarding: lab results, diagnosis, rad results Medical Desision Making - Independent Historian Additional History obtained from: Family (Patient's son), Facility Environmental Technician/EMT - Diagnostic Testing Diagnostic test were ordered, analyzed, and reviewed by me: Yes Radiological Interpretation: Reviewed by me, Teleradiologist Report - Risk of complications The pt has a high risk of morbidity or mortality based on: Decision regarding hospitilization or escalation of hosp level of care - Departure Clinical Impression: Suicidal behavior, Alcohol intoxication Condition: Stable Critical Care Time: No Referrals: BAIRON HICKEY MD [Primary Care Provider] - Follow up/PCP as directed
[2022-12-26] MEDS ORDERED: Zofran 4 MG/2 ML VIAL IV ONE (13:02)
[2022-12-26] MEDS ORDERED: PROTONIX 40 MG IV IV ONE ×2 (13:02→13:12)
[2022-12-26] MEDS ORDERED: Ativan 2 MG/1 ML VIAL IV ONE (13:02)
[2022-12-26] MEDS ORDERED: Sodium Chloride 0.9% 1000 ML 1,000 ML IV STA ×3 (13:02→19:41)
[2022-12-26] MEDS ORDERED: Ativan 2 MG/1 ML VIAL ONE (13:09)
[2022-12-26] MEDS ORDERED: Sodium Chloride 0.9% 1000 ML 1,000 ML ONE (13:12)
[2022-12-26] MEDS ORDERED: Zofran 4 MG/2 ML VIAL ONE (13:12)
[2022-12-26 13:25] LABS: Appearance Clear (Clear); Bacteria None Seen /HPF (None Seen); Bilirubin Negative (Negative); Blood Negative (Negative); Epithelial Cells None Seen /HPF (None Seen); Glucose, Urine Negative (Negative); Ketones Trace (Negative); Leukocyte Esterase Negative (Negative); Nitrite Negative (Negative); Ph 5.5 (4.6-8.0); Protein,Urine Dip Negative (Negative); RBC 0-2 /HPF (0-5); Urobilinogen 0.2 mg/dL (0.2); WBC 0-2 /HPF (0-5)
[2022-12-26 13:29] LABS: ADD URINE CULTURE? NO (NO)
[2022-12-26 13:34] LABS: Absolute Neutrophil Ct (ANC) 4.86 x10^3/uL (1.4-6.9); BASOPHIL % 1.2 % (0.0-0.4); Eosinophil % 0.8 % (0.00-5.0); Eosinophil (Absolute #) 0.07 x10^3/uL (0-0.5); Hematocrit 35.4 % (35-47); Hemoglobin 11.2 g/dL (12.0-16.0); IMMATURE GRAN # 0.04 x10^3u/L (0.00-0.03); IMMATURE GRAN % 0.5 % (0.00-0.4); Lymphocyte (Absolute #) 2.58 x10^3/uL (1.0-4.6); Lymphocytes % 30.8 % (24.0-44.0); Mean Cell Volume 64.8 fL (78-100); Mean Corpuscular Hemoglobin 20.5 pg (26-32); Mean Corpuscular Hgb Concent. 31.6 g/dL (32-36); Monocyte (Absolute #) 0.73 x10^3/uL (0.0-1.3); Monocytes % 8.7 % (0.0-12.0); NUCLEATED RBC # 0.03 x10^3u/L (0.00-0.01); NUCLEATED RBC % 0.4 % (0.00-0.1); Platelet Count 289 x10^3/uL (150-450); Red Blood Count 5.46 x10^6/uL (4.1-5.4); Red Cell Distribution Width 14.2 % (11.5-14.0); White Blood Count 8.4 x10^3/uL (4.0-10.5)
[2022-12-26 13:36] LABS: Amphetamine,Urine NEGATIVE (NEGATIVE); Barbiturate,Urine NEGATIVE (NEGATIVE); Benzodiazepine,Urine NEGATIVE (NEGATIVE); Cocaine,Urine NEGATIVE (NEGATIVE); Methadone,Urine NEGATIVE (NEGATIVE); Opiate,Urine NEGATIVE (NEGATIVE); PCP,Urine NEGATIVE (NEGATIVE); THC,Urine POSITIVE (NEGATIVE)
[2022-12-26 13:48] LABS: ACETAMINOPHEN < 10 ug/ml (10-30); ALKALINE PHOSPHATASE 113 U/L (38-126); AMYLASE 48 U/L (30-110); ANION GAP 16.6 MEQ/L (5-15); BLOOD UREA NITROGEN 10 mg/dL (7-17); CHLORIDE 103 mmol/L (98-107); Calcium 8.5 mg/dL (8.4-10.2); Carbon Dioxide 26 mmol/L (22-30); Creatinine 1 0.51 mg/dL (0.52-1.04); EST GLOMERULAR FILTRATION RATE > 60.0 ML/MIN; ETHYL ALCOHOL 195 mg/dL (0-10); Glucose 84 mg/dL (74-106); LIPASE 64 U/L (23-300); Potassium 3.3 mmol/L (3.5-5.1); SALICYLATE < 1.0 mg/dL (2-20); SGOT/AST 56 U/L (14-36); SGPT/ALT 34 U/L (0-35); SODIUM 142 mmol/L (137-145); Total Protein 7.2 g/dL (6.3-8.2)
--- NOTE | 2022-12-26 14:28 | XRAY ---
Indication: Agitated. Intoxicated. History of left ICA aneurysm with embolization. Multiple contiguous axial images obtained through the head without contrast. Comparison: None There is extreme beam artifact from known left parasellar embolization coils limiting exam. Visualized brain parenchyma is negative for acute intracranial hemorrhage, abnormal extra-axial fluid collection, or mass effect. Fourth ventricle is midline without hydrocephalus. Bony calvarium intact. Visualized paranasal sinuses and mastoid air cells are clear. Impression: Limited exam due to extreme beam artifact from left parasellar embolization coils. No gross acute intracranial abnormalities.
--- NOTE | 2022-12-26 14:32 | XRAY ---
Indication: Abdomen pain, nausea, and vomiting. Intoxicated. Multiple contiguous axial images obtained through the abdomen and pelvis without contrast. Comparison: None Lung bases demonstrate dependent atelectasis. Heart not enlarged. Noncontrasted stomach and bowel loops appear nonobstructed. Minimal descending and sigmoid diverticulosis without diverticulitis. Near empty urinary bladder with Guzman balloon catheter in situ. Diffuse fatty liver. No free fluid/air. Remaining gallbladder, pancreas, spleen, adrenal glands, kidneys, ureters, and aorta are unremarkable for noncontrast exam. Osseous structures intact with minimal degenerative changes throughout the lumbar spine, and moderate double curvature thoracolumbar scoliosis. No ventral or inguinal hernias. Impression: 1. Colonic diverticulosis, fatty liver, chronic bony findings, and Guzman catheter in situ. 2. Remaining CT abdomen/pelvis without contrast exam is negative.
[2022-12-26 14:58] LABS: INFLUENZA A NEGATIVE (NEGATIVE); INFLUENZA B NEGATIVE (NEGATIVE); RESPIRATORY SYNCTIAL VIRUS NEGATIVE (NEGATIVE); SARS-CoV-2 Xpert Express NEGATIVE (NEGATIVE)
[2022-12-26] MEDS: Sodium Chloride 0.9% W/ 20 mEq KCl/LITER 1,000 ML IV SCH (15:18)
[2022-12-26] MEDS ORDERED: Ativan 2 MG/1 ML VIAL IV PRN (15:59)
[2022-12-26] MEDS ORDERED: TYLENOL 325 MG PO PRN (15:59)
[2022-12-26] MEDS: PROTONIX 40 MG IV IV SCH (16:11)
--- NOTE | 2022-12-26 16:29 | PCM.HP ---
History of Present Illness - Chief Complaint Chief Complaint: Suicidal gestures Date: 12/26/22 History of Present Illness: is a 62 year old female with a pmhx of a brain anneurysm s/p surgical intervention, beta thalassemia minor, and interstitial cystitis who presented to ED 12/26/22 via EMS with complaints of abdominal and bladder pain, nausea, vomiting, and diarrhea. Her son reports that the patient called and reported that she did not want to live. There is a gun in the home which the patient has access to. She states during interview that the pain is secondary to her IC. The pain is so severe it "makes her not want to live." She reports that pain has been persistent for about a year and she has been receiving Dilaudid and gabapentin from Dr. Jose, pain specialist, but she ran out about two weeks ago and has to be seen prior to a refill. Son reported that patient is currently going through a divorce and has been drinking a fifth of alcohol daily. She does confirm that she has been drinking about a fifth of rum daily for about a year, her last drink was this morning. She is interested in quitting. In ER patient was tachycardic, afebrile, normotensive, and on RA with spo2 @ 100%. CT imaging of the head showed no gross acute abnormalities. CT of the A/P with colonic diverticulosis, fatty liver disease, as well as chronic bony findings. Lab findings remarkable for hgb 11.2, hypokalemic with potassium at 3.3, gap 16.6. ast 56,ethyl alcohol at 195. Patient was given ativan, zofran, protonix, and IVF bolus. - Review of Systems Constitutional: No Symptoms Eyes: No Symptoms Ears, Nose, & Throat: No Symptoms Respiratory: No Symptoms Cardiac: No Symptoms Abdominal/Gastrointestinal: Abdominal Pain, Nausea, Vomiting, Diarrhea Genitourinary Symptoms: Dysuria Musculoskeletal: No Symptoms Skin: No Symptoms Neurological: No Symptoms Psychological: Alcohol Abuse, Suicidal Ideations Endocrine: No Symptoms Hematologic/Lymphatic: No Symptoms Immunological/Allergic: No Symptoms Medications & Allergies Home Medications: Home Medication List Gabapentin 600 mg PO TID 01/21/20 [History Confirmed 12/26/22] Hydromorphone HCl [Dilaudid] 8 mg PO QID 01/21/20 [History Confirmed 12/26/22] Promethazine HCl 12.5 mg PO Q6HPRN PRN 01/21/20 [History Confirmed 12/26/22] Allergies/Adverse Reactions: Allergies Allergy/AdvReac Type Severity Reaction Status Date / Time No Known Drug Allergies Allergy Verified 12/26/22 13:03 - Past Medical History Past Medical History: Yes Neurological History: Other ENT History: Other Cardiac History: Aneurysm Respiratory History: No Pertinent History Endocrine Medical History: No Pertinent History Musculoskelatal History: Other Comment: ANEMIA - BETATHALLACYEMIA MINOR, poor vison. SCOLIOSIS, EDEMA - Past Surgical History Past Surgical History: Yes GI Surgical History: Appendectomy Female Surgical History: Hysterectomy, Section Other Surgical History: coils placed in head for aneurysm, bladder sling mesh - Social History Smoking Status: Former smoker Exposure to second hand smoke: No Alcohol: Weekly Drug Use: none - Physical Exam Vital Signs: Vital Signs - 24 hr Temp Pulse Resp BP BP Pulse Ox 12/26/22 15:59 100 12/26/22 14:30 125 H 18 134/78 84 L 12/26/22 14:22 106 H 19 121/77 91 L 12/26/22 14:20 105 H 17 92 L 12/26/22 14:14 111 H 20 94 L 12/26/22 13:00 115 H 23 119/73 97 12/26/22 12:48 97.0 F 118 H 24 119/73 96 General Appearance: moderate distress Neurologic Exam: alert, oriented x 3, cooperative Neck Exam: normal inspection Respiratory Exam: normal breath sounds, lungs clear Cardiovascular Exam: tachycardia Gastrointestinal/Abdomen Exam: soft Back Exam: normal inspection Extremity Exam: normal inspection Skin Exam: normal color Results - Labs Lab/Micro Results: Lab Results-Last 24 Hours 12/26/22 12/26/22 12/26/22 Range/Units 13:00 13:16 13:16 WBC (4.0-10.5) x10^3/uL RBC (4.1-5.4) x10^6/uL Hgb (12.0-16.0) g/dL Hct (35-47) % MCV (78-100) fL MCH (26-32) pg MCHC (32-36) g/dL RDW (11.5-14.0) % Plt Count (150-450) x10^3/uL Gran % (36.0-66.0) % Immature Gran % (Auto) (0.00-0.4) % Nucleat RBC Rel Count (0.00-0.1) % Eos # (Auto) (0-0.5) x10^3/uL Immature Gran # (Auto) (0.00-0.03) x10^3u/L Absolute Lymphs (auto) (1.0-4.6) x10^3/uL Absolute Monos (auto) (0.0-1.3) x10^3/uL Absolute Nucleated RBC (0.00-0.01) x10^3u/L Lymphocytes % (24.0-44.0) % Monocytes % (0.0-12.0) % Eosinophils % (0.00-5.0) % Basophils % (0.0-0.4) % Absolute Granulocytes (1.4-6.9) x10^3/uL Basophils # (0-0.4) x10^3/uL Sodium (137-145) mmol/L Potassium (3.5-5.1) mmol/L Chloride (98-107) mmol/L Carbon Dioxide (22-30) mmol/L Anion Gap (5-15) MEQ/L BUN (7-17) mg/dL Creatinine (0.52-1.04) mg/dL Estimated GFR ML/MIN Glucose (74-106) mg/dL POC Glucometer (74 to 106) mg/dL Calcium (8.4-10.2) mg/dL Total Bilirubin (0.2-1.3) mg/dL AST (14-36) U/L ALT (0-35) U/L Alkaline Phosphatase (38-126) U/L Troponin I < 0.012 (0.000-0.034) ng/mL Serum Total Protein (6.3-8.2) g/dL Albumin (3.5-5.0) g/dL Amylase (30-110) U/L Lipase (23-300) U/L Urine Color Yellow (Yellow) Urine Appearance Clear (Clear) Urine pH 5.5 (4.6-8.0) Ur Specific [place] 1.010 (1.005-1.030) Urine Protein Negative (Negative) Urine Glucose (UA) Negative (Negative) mg/dL Urine Ketones Trace A (Negative) Urine Blood Negative (Negative) Urine Nitrite Negative (Negative) Urine Bilirubin Negative (Negative) Urine Urobilinogen 0.2 (0.2) mg/dL Ur Leukocyte Esterase Negative (Negative) U Hyaline Cast (Auto) 3-5 A (0-2) /LPF Urine Microscopic RBC 0-2 (0-5) /HPF Urine Microscopic WBC 0-2 (0-5) /HPF Ur Epithelial Cells None Seen (None Seen) /HPF Urine Bacteria None Seen (None Seen) /HPF Urine Culture Reflexed NO (NO) Salicylates (2-20) mg/dL Urine Opiates Level NEGATIVE (NEGATIVE) Ur Methadone NEGATIVE (NEGATIVE) Acetaminophen (10-30) ug/ml Urine Barbiturates NEGATIVE (NEGATIVE) Ur Phencyclidine (PCP) NEGATIVE (NEGATIVE) Urine Amphetamine NEGATIVE (NEGATIVE) U Benzodiazepine Level NEGATIVE (NEGATIVE) Urine Cocaine NEGATIVE (NEGATIVE) Urine Marijuana (THC) POSITIVE (NEGATIVE) Ethyl Alcohol (0-10) mg/dL Influenza Type A Ag (NEGATIVE) Influenza Type B Ag (NEGATIVE) RSV (PCR) (NEGATIVE) SARS-CoV-2 (PCR) (NEGATIVE) 12/26/22 12/26/22 12/26/22 Range/Units 13:25 13:25 13:32 WBC 8.4 (4.0-10.5) x10^3/uL RBC 5.46 H (4.1-5.4) x10^6/uL Hgb 11.2 L (12.0-16.0) g/dL Hct 35.4 (35-47) % MCV 64.8 L (78-100) fL MCH 20.5 L (26-32) pg MCHC 31.6 L (32-36) g/dL RDW 14.2 H (11.5-14.0) % Plt Count 289 (150-450) x10^3/uL Gran % 58.0 (36.0-66.0) % Immature Gran % (Auto) 0.5 H (0.00-0.4) % Nucleat RBC Rel Count 0.4 H (0.00-0.1) % Eos # (Auto) 0.07 (0-0.5) x10^3/uL Immature Gran # (Auto) 0.04 H (0.00-0.03) x10^3u/L Absolute Lymphs (auto) 2.58 (1.0-4.6) x10^3/uL Absolute Monos (auto) 0.73 (0.0-1.3) x10^3/uL Absolute Nucleated RBC 0.03 H (0.00-0.01) x10^3u/L Lymphocytes % 30.8 (24.0-44.0) % Monocytes % 8.7 (0.0-12.0) % Eosinophils % 0.8 (0.00-5.0) % Basophils % 1.2 (0.0-0.4) % Absolute Granulocytes 4.86 (1.4-6.9) x10^3/uL Basophils # 0.10 (0-0.4) x10^3/uL Sodium 142 (137-145) mmol/L Potassium 3.3 L (3.5-5.1) mmol/L Chloride 103 (98-107) mmol/L Carbon Dioxide 26 (22-30) mmol/L Anion Gap 16.6 H (5-15) MEQ/L BUN 10 (7-17) mg/dL Creatinine 0.51 L (0.52-1.04) mg/dL Estimated GFR > 60.0 ML/MIN Glucose 84 (74-106) mg/dL POC Glucometer 83 (74 to 106) mg/dL Calcium 8.5 (8.4-10.2) mg/dL Total Bilirubin 0.80 (0.2-1.3) mg/dL AST 56 H (14-36) U/L ALT 34 (0-35) U/L Alkaline Phosphatase 113 (38-126) U/L Troponin I (0.000-0.034) ng/mL Serum Total Protein 7.2 (6.3-8.2) g/dL Albumin 4.0 (3.5-5.0) g/dL Amylase 48 (30-110) U/L Lipase 64 (23-300) U/L Urine Color (Yellow) Urine Appearance (Clear) Urine pH (4.6-8.0) Ur Specific [place] (1.005-1.030) Urine Protein (Negative) Urine Glucose (UA) (Negative) mg/dL Urine Ketones (Negative) Urine Blood (Negative) Urine Nitrite (Negative) Urine Bilirubin (Negative) Urine Urobilinogen (0.2) mg/dL Ur Leukocyte Esterase (Negative) U Hyaline Cast (Auto) (0-2) /LPF Urine Microscopic RBC (0-5) /HPF Urine Microscopic WBC (0-5) /HPF Ur Epithelial Cells (None Seen) /HPF Urine Bacteria (None Seen) /HPF Urine Culture Reflexed (NO) Salicylates < 1.0 L (2-20) mg/dL Urine Opiates Level (NEGATIVE) Ur Methadone (NEGATIVE) Acetaminophen < 10 L (10-30) ug/ml Urine Barbiturates (NEGATIVE) Ur Phencyclidine (PCP) (NEGATIVE) Urine Amphetamine (NEGATIVE) U Benzodiazepine Level (NEGATIVE) Urine Cocaine (NEGATIVE) Urine Marijuana (THC) (NEGATIVE) Ethyl Alcohol 195 H (0-10) mg/dL Influenza Type A Ag (NEGATIVE) Influenza Type B Ag (NEGATIVE) RSV (PCR) (NEGATIVE) SARS-CoV-2 (PCR) (NEGATIVE) 12/26/22 Range/Units Unknown WBC (4.0-10.5) x10^3/uL RBC (4.1-5.4) x10^6/uL Hgb (12.0-16.0) g/dL Hct (35-47) % MCV (78-100) fL MCH (26-32) pg MCHC (32-36) g/dL RDW (11.5-14.0) % Plt Count (150-450) x10^3/uL Gran % (36.0-66.0) % Immature Gran % (Auto) (0.00-0.4) % Nucleat RBC Rel Count (0.00-0.1) % Eos # (Auto) (0-0.5) x10^3/uL Immature Gran # (Auto) (0.00-0.03) x10^3u/L Absolute Lymphs (auto) (1.0-4.6) x10^3/uL Absolute Monos (auto) (0.0-1.3) x10^3/uL Absolute Nucleated RBC (0.00-0.01) x10^3u/L Lymphocytes % (24.0-44.0) % Monocytes % (0.0-12.0) % Eosinophils % (0.00-5.0) % Basophils % (0.0-0.4) % Absolute Granulocytes (1.4-6.9) x10^3/uL Basophils # (0-0.4) x10^3/uL Sodium (137-145) mmol/L Potassium (3.5-5.1) mmol/L Chloride (98-107) mmol/L Carbon Dioxide (22-30) mmol/L Anion Gap (5-15) MEQ/L BUN (7-17) mg/dL Creatinine (0.52-1.04) mg/dL Estimated GFR ML/MIN Glucose (74-106) mg/dL POC Glucometer (74 to 106) mg/dL Calcium (8.4-10.2) mg/dL Total Bilirubin (0.2-1.3) mg/dL AST (14-36) U/L ALT (0-35) U/L Alkaline Phosphatase (38-126) U/L Troponin I (0.000-0.034) ng/mL Serum Total Protein (6.3-8.2) g/dL Albumin (3.5-5.0) g/dL Amylase (30-110) U/L Lipase (23-300) U/L Urine Color (Yellow) Urine Appearance (Clear) Urine pH (4.6-8.0) Ur Specific [place] (1.005-1.030) Urine Protein (Negative) Urine Glucose (UA) (Negative) mg/dL Urine Ketones (Negative) Urine Blood (Negative) Urine Nitrite (Negative) Urine Bilirubin (Negative) Urine Urobilinogen (0.2) mg/dL Ur Leukocyte Esterase (Negative) U Hyaline Cast (Auto) (0-2) /LPF Urine Microscopic RBC (0-5) /HPF Urine Microscopic WBC (0-5) /HPF Ur Epithelial Cells (None Seen) /HPF Urine Bacteria (None Seen) /HPF Urine Culture Reflexed (NO) Salicylates (2-20) mg/dL Urine Opiates Level (NEGATIVE) Ur Methadone (NEGATIVE) Acetaminophen (10-30) ug/ml Urine Barbiturates (NEGATIVE) Ur Phencyclidine (PCP) (NEGATIVE) Urine Amphetamine (NEGATIVE) U Benzodiazepine Level (NEGATIVE) Urine Cocaine (NEGATIVE) Urine Marijuana (THC) (NEGATIVE) Ethyl Alcohol (0-10) mg/dL Influenza Type A Ag NEGATIVE (NEGATIVE) Influenza Type B Ag NEGATIVE (NEGATIVE) RSV (PCR) NEGATIVE (NEGATIVE) SARS-CoV-2 (PCR) NEGATIVE (NEGATIVE) Accuchecks Date 12/26/22 Time 13:33 - Radiology Impressions Radiology Exams & Impressions: Radiology Procedures Category Date Time Status ABDOMEN AND PELVIS W/0 CONTRAS [CT] Stat Exams 12/26/22 13:26 Completed HEAD WITHOUT CONTRAST [CT] Stat Exams 12/26/22 13:37 Completed - Other Procedures and Tests Respiratory Therapy 12/26/22 15:59 EKG REPEAT IN AM Assessment/Plan (1) Alcohol intoxication Current Visit: Yes Status: Acute Assessment & Plan: Alcohol Withdrawal in the setting of Alcohol Dependence -Daily drinker at least a fifth of rum per report -no prior history of withdrawal seizures within 24-48 hours or delerium tremens -last drink 12/26/22 - No prior attempt at quitting but is interested in getting sober -Consider inpatient psychiatry consult for the purpose of counseling and rehabilitation; consult to addiction liaison -seizure precautions, fall precautions -Maintain on CIWA protocol with close monitoring -if patient continues to have symptoms of withdrawal despite being on the CIWA protocol consider PO phenobarbital protocol (2) Suicidal behavior Current Visit: Yes Status: Acute Assessment & Plan: Admit obs with sitter full code adult safe diet tray consult behavioral health, await recommendations start LR @ 75 ml/hr initiate CIWA protocol including seizure and fall precautions, lorazepam PRN, MVI, thiamine, & folic acid initiate pain mgmt CBC, BMP, Mg in am continue appropriate baseline home medications Code(s): R45.89 - OTHER SYMPTOMS AND SIGNS INVOLVING EMOTIONAL STATE (3) Hypokalemia Current Visit: Yes Status: Acute Assessment & Plan: -replenish per potassium protocol Code(s): E87.6 - HYPOKALEMIA (4) Nausea vomiting and diarrhea Current Visit: Yes Status: Acute Assessment & Plan: -zofran prn Code(s): R11.2 - NAUSEA WITH VOMITING, UNSPECIFIED; R19.7 - DIARRHEA, UNSPECIFIED (5) Interstitial cystitis Current Visit: Yes Status: Acute Assessment & Plan: -Noted, patient follows with pain managment Dr. Jose in [place], reports she has been out of pain medications Dilaudid/gabapentin x 2 weeks -dilaudid prn Code(s): N30.10 - INTERSTITIAL CYSTITIS (CHRONIC) WITHOUT HEMATURIA
[2022-12-26] MEDS: Hydromorphone 1 mg/ml Injection IV PRN ×2 (17:49→21:32)
[2022-12-26 18:15] LABS: MAGNESIUM 1.5 mg/dL (1.6-2.3)
[2022-12-26] MEDS: Klor Con PO SCH ×3 (18:25→21:56)
[2022-12-26] MEDS: THIAMINE 200 MG/2 ML IV SCH (18:25)
[2022-12-26] MEDS: FOLATE 1 MG PO SCH (18:25)
[2022-12-26] MEDS ORDERED: MAGNESIUM SULF 2 G/50 ML BAG 2 GM/50 ML PIGGYBACK IV ONE ×2 (18:28→18:31)
[2022-12-26] MEDS: Zofran 4 MG/2 ML VIAL IV PRN (21:32)
[2022-12-26 22:28] LABS: TROPONIN < 0.012 ng/mL (0.000-0.034)
[2022-12-27] MEDS: Sodium Chloride 0.9% W/ 20 mEq KCl/LITER 1,000 ML IV SCH ×2 (00:47→09:45)
[2022-12-27] MEDS: Klor Con PO SCH (00:47)
[2022-12-27] MEDS: Hydromorphone 1 mg/ml Injection IV PRN ×4 (01:33→13:29)
[2022-12-27] MEDS: Zofran 4 MG/2 ML VIAL IV PRN ×2 (03:03→10:44)
[2022-12-27] MEDS ORDERED: Ativan 2 MG/1 ML VIAL ONE (04:18)
[2022-12-27] MEDS: Ativan 2 MG/1 ML VIAL IV PRN ×4 (04:23→13:46)
[2022-12-27 07:29] VITALS: RESP 18
[2022-12-27 07:40] LABS: Hematocrit 35.1 % (35-47); Hemoglobin 11.2 g/dL (12.0-16.0); Mean Cell Volume 65.9 fL (78-100); Mean Corpuscular Hgb Concent. 31.9 g/dL (32-36); Platelet Count 265 x10^3/uL (150-450); Red Blood Count 5.33 x10^6/uL (4.1-5.4); Red Cell Distribution Width 14.4 % (11.5-14.0); White Blood Count 14.4 x10^3/uL (4.0-10.5)
[2022-12-27 07:48] LABS: ALBUMIN 3.8 g/dL (3.5-5.0); ALKALINE PHOSPHATASE 112 U/L (38-126); ANION GAP 17.5 MEQ/L (5-15); BLOOD UREA NITROGEN 9 mg/dL (7-17); CHLORIDE 109 mmol/L (98-107); Calcium 8.6 mg/dL (8.4-10.2); Carbon Dioxide 20 mmol/L (22-30); Creatinine 1 0.45 mg/dL (0.52-1.04); EST GLOMERULAR FILTRATION RATE > 60.0 ML/MIN; Glucose 178 mg/dL (74-106); MAGNESIUM 1.9 mg/dL (1.6-2.3); PHOSPHOROUS 2.7 mg/dL (2.5-4.5); Potassium 5.1 mmol/L (3.5-5.1); SGOT/AST 39 U/L (14-36); SGPT/ALT 29 U/L (0-35); SODIUM 141 mmol/L (137-145); Total Protein 6.8 g/dL (6.3-8.2)
[2022-12-27] MEDS: APRESOLINE 20 MG/ML INJ IV PRN ×2 (08:00→08:29)
[2022-12-27 08:40] LABS: Slide Review YES
[2022-12-27] MEDS ORDERED: Haldol 5 MG IV ONE (09:01)
[2022-12-27] MEDS: PROTONIX 40 MG IV IV SCH (09:19)
[2022-12-27] MEDS: THIAMINE 200 MG/2 ML IV SCH (09:20)
[2022-12-27] MEDS: FOLATE 1 MG PO SCH (10:11)
[2022-12-27 10:46] VITALS: BP 164/95; O2SAT 95
--- NOTE | 2022-12-27 10:46 | PCM.DS ---
Discharge Summary Date of Admission: 12/26/22 15:53 Date of Discharge: 12/27/22 Admitting Physician: MOUNA LIVINGSTON MD Consults: Consults on Case 12/27/22 08:00 Psychiatric Consult STAT Primary Care Provider: BAIRON HICKEY MD Allergies Allergies No Known Drug Allergies Allergy (Verified 12/26/22 13:03) Hospital Summary - Hospital Course Hospital Course: Patient admitted with depression and suicidal thoughts. The patient has been drinking a fifth of rum daily and takes Dilaudid 8mg QID at home for management of interstitial cystitis although has been out of Dilaudid for between 4 days and 2 weeks. She complains of diffuse abdominal pain/bladder without provocative or palliative factors. CT of abdomen is negative. She reports fever and cough and dyspnea. She reports dysuria with her history of interstitial cystitis. Her ROS was positive throughout. She reports diarrhea. She has clear lungs but abdomen is tender. Labs showed ETOH of 195 on admission. Plan was to let her m etabolize the alcohol and have behavioral services assess her in am under suicidal watch with CIWA protocol/ Possible IP treatment for alcoholism (patient agreeable). We offered Dildaudid 1mg IV for pain but pain and vitals remained uncontrolled despite CIWA protocol/pain management. Patient requiring higher level of care and to be transferred. - Vitals & Intake/Output Vital Signs: Vital Signs Temperature 98.6 F 12/27/22 06:46 Pulse Rate 113 H 12/27/22 10:06 Respiratory Rate 18 12/27/22 07:26 Blood Pressure 158/92 12/27/22 10:06 O2 Sat by Pulse Oximetry 96 12/27/22 06:46 Intake & Output: Intake & Output 12/24/22 12/25/22 12/26/22 12/27/22 11:59 11:59 11:59 11:59 Intake Total 2300 Output Total 1500 Balance 800 Weight 54.2 kg - Lab Result Diagrams: 12/27/22 07:28 12/27/22 07:28 Lab Results-Last 24 Hrs: Lab Results-Last 24 Hours 12/26/22 12/26/22 12/26/22 Range/Units 13:00 13:16 13:16 WBC (4.0-10.5) x10^3/uL RBC (4.1-5.4) x10^6/uL Hgb (12.0-16.0) g/dL Hct (35-47) % MCV (78-100) fL MCH (26-32) pg MCHC (32-36) g/dL RDW (11.5-14.0) % Plt Count (150-450) x10^3/uL Gran % (36.0-66.0) % Immature Gran % (Auto) (0.00-0.4) % Nucleat RBC Rel Count (0.00-0.1) % Eos # (Auto) (0-0.5) x10^3/uL Immature Gran # (Auto) (0.00-0.03) x10^3u/L Absolute Lymphs (auto) (1.0-4.6) x10^3/uL Absolute Monos (auto) (0.0-1.3) x10^3/uL Absolute Nucleated RBC (0.00-0.01) x10^3u/L Lymphocytes % (24.0-44.0) % Monocytes % (0.0-12.0) % Eosinophils % (0.00-5.0) % Basophils % (0.0-0.4) % Absolute Granulocytes (1.4-6.9) x10^3/uL Basophils # (0-0.4) x10^3/uL Sodium (137-145) mmol/L Potassium (3.5-5.1) mmol/L Chloride (98-107) mmol/L Carbon Dioxide (22-30) mmol/L Anion Gap (5-15) MEQ/L BUN (7-17) mg/dL Creatinine (0.52-1.04) mg/dL Estimated GFR ML/MIN Glucose (74-106) mg/dL POC Glucometer (74 to 106) mg/dL Lactic Acid (0.4-2.0) Calcium (8.4-10.2) mg/dL Phosphorus (2.5-4.5) mg/dL Magnesium (1.6-2.3) mg/dL Total Bilirubin (0.2-1.3) mg/dL AST (14-36) U/L ALT (0-35) U/L Alkaline Phosphatase (38-126) U/L Troponin I < 0.012 (0.000-0.034) ng/mL Serum Total Protein (6.3-8.2) g/dL Albumin (3.5-5.0) g/dL Amylase (30-110) U/L Lipase (23-300) U/L Urine Color Yellow (Yellow) Urine Appearance Clear (Clear) Urine pH 5.5 (4.6-8.0) Ur Specific [place] 1.010 (1.005-1.030) Urine Protein Negative (Negative) Urine Glucose (UA) Negative (Negative) mg/dL Urine Ketones Trace A (Negative) Urine Blood Negative (Negative) Urine Nitrite Negative (Negative) Urine Bilirubin Negative (Negative) Urine Urobilinogen 0.2 (0.2) mg/dL Ur Leukocyte Esterase Negative (Negative) U Hyaline Cast (Auto) 3-5 A (0-2) /LPF Urine Microscopic RBC 0-2 (0-5) /HPF Urine Microscopic WBC 0-2 (0-5) /HPF Ur Epithelial Cells None Seen (None Seen) /HPF Urine Bacteria None Seen (None Seen) /HPF Urine Culture Reflexed NO (NO) Salicylates (2-20) mg/dL Urine Opiates Level NEGATIVE (NEGATIVE) Ur Methadone NEGATIVE (NEGATIVE) Acetaminophen (10-30) ug/ml Urine Barbiturates NEGATIVE (NEGATIVE) Ur Phencyclidine (PCP) NEGATIVE (NEGATIVE) Urine Amphetamine NEGATIVE (NEGATIVE) U Benzodiazepine Level NEGATIVE (NEGATIVE) Urine Cocaine NEGATIVE (NEGATIVE) Urine Marijuana (THC) POSITIVE (NEGATIVE) Ethyl Alcohol (0-10) mg/dL Influenza Type A Ag (NEGATIVE) Influenza Type B Ag (NEGATIVE) RSV (PCR) (NEGATIVE) SARS-CoV-2 (PCR) (NEGATIVE) Slides for Path Review 12/26/22 12/26/22 12/26/22 Range/Units 13:25 13:25 13:32 WBC 8.4 (4.0-10.5) x10^3/uL RBC 5.46 H (4.1-5.4) x10^6/uL Hgb 11.2 L (12.0-16.0) g/dL Hct 35.4 (35-47) % MCV 64.8 L (78-100) fL MCH 20.5 L (26-32) pg MCHC 31.6 L (32-36) g/dL RDW 14.2 H (11.5-14.0) % Plt Count 289 (150-450) x10^3/uL Gran % 58.0 (36.0-66.0) % Immature Gran % (Auto) 0.5 H (0.00-0.4) % Nucleat RBC Rel Count 0.4 H (0.00-0.1) % Eos # (Auto) 0.07 (0-0.5) x10^3/uL Immature Gran # (Auto) 0.04 H (0.00-0.03) x10^3u/L Absolute Lymphs (auto) 2.58 (1.0-4.6) x10^3/uL Absolute Monos (auto) 0.73 (0.0-1.3) x10^3/uL Absolute Nucleated RBC 0.03 H (0.00-0.01) x10^3u/L Lymphocytes % 30.8 (24.0-44.0) % Monocytes % 8.7 (0.0-12.0) % Eosinophils % 0.8 (0.00-5.0) % Basophils % 1.2 (0.0-0.4) % Absolute Granulocytes 4.86 (1.4-6.9) x10^3/uL Basophils # 0.10 (0-0.4) x10^3/uL Sodium 142 (137-145) mmol/L Potassium 3.3 L (3.5-5.1) mmol/L Chloride 103 (98-107) mmol/L Carbon Dioxide 26 (22-30) mmol/L Anion Gap 16.6 H (5-15) MEQ/L BUN 10 (7-17) mg/dL Creatinine 0.51 L (0.52-1.04) mg/dL Estimated GFR > 60.0 ML/MIN Glucose 84 (74-106) mg/dL POC Glucometer 83 (74 to 106) mg/dL Lactic Acid (0.4-2.0) Calcium 8.5 (8.4-10.2) mg/dL Phosphorus (2.5-4.5) mg/dL Magnesium (1.6-2.3) mg/dL Total Bilirubin 0.80 (0.2-1.3) mg/dL AST 56 H (14-36) U/L ALT 34 (0-35) U/L Alkaline Phosphatase 113 (38-126) U/L Troponin I (0.000-0.034) ng/mL Serum Total Protein 7.2 (6.3-8.2) g/dL Albumin 4.0 (3.5-5.0) g/dL Amylase 48 (30-110) U/L Lipase 64 (23-300) U/L Urine Color (Yellow) Urine Appearance (Clear) Urine pH (4.6-8.0) Ur Specific [place] (1.005-1.030) Urine Protein (Negative) Urine Glucose (UA) (Negative) mg/dL Urine Ketones (Negative) Urine Blood (Negative) Urine Nitrite (Negative) Urine Bilirubin (Negative) Urine Urobilinogen (0.2) mg/dL Ur Leukocyte Esterase (Negative) U Hyaline Cast (Auto) (0-2) /LPF Urine Microscopic RBC (0-5) /HPF Urine Microscopic WBC (0-5) /HPF Ur Epithelial Cells (None Seen) /HPF Urine Bacteria (None Seen) /HPF Urine Culture Reflexed (NO) Salicylates < 1.0 L (2-20) mg/dL Urine Opiates Level (NEGATIVE) Ur Methadone (NEGATIVE) Acetaminophen < 10 L (10-30) ug/ml Urine Barbiturates (NEGATIVE) Ur Phencyclidine (PCP) (NEGATIVE) Urine Amphetamine (NEGATIVE) U Benzodiazepine Level (NEGATIVE) Urine Cocaine (NEGATIVE) Urine Marijuana (THC) (NEGATIVE) Ethyl Alcohol 195 H (0-10) mg/dL Influenza Type A Ag (NEGATIVE) Influenza Type B Ag (NEGATIVE) RSV (PCR) (NEGATIVE) SARS-CoV-2 (PCR) (NEGATIVE) Slides for Path Review 12/26/22 12/26/22 12/26/22 Range/Units 17:42 17:55 17:55 WBC (4.0-10.5) x10^3/uL RBC (4.1-5.4) x10^6/uL Hgb (12.0-16.0) g/dL Hct (35-47) % MCV (78-100) fL MCH (26-32) pg MCHC (32-36) g/dL RDW (11.5-14.0) % Plt Count (150-450) x10^3/uL Gran % (36.0-66.0) % Immature Gran % (Auto) (0.00-0.4) % Nucleat RBC Rel Count (0.00-0.1) % Eos # (Auto) (0-0.5) x10^3/uL Immature Gran # (Auto) (0.00-0.03) x10^3u/L Absolute Lymphs (auto) (1.0-4.6) x10^3/uL Absolute Monos (auto) (0.0-1.3) x10^3/uL Absolute Nucleated RBC (0.00-0.01) x10^3u/L Lymphocytes % (24.0-44.0) % Monocytes % (0.0-12.0) % Eosinophils % (0.00-5.0) % Basophils % (0.0-0.4) % Absolute Granulocytes (1.4-6.9) x10^3/uL Basophils # (0-0.4) x10^3/uL Sodium (137-145) mmol/L Potassium (3.5-5.1) mmol/L Chloride (98-107) mmol/L Carbon Dioxide (22-30) mmol/L Anion Gap (5-15) MEQ/L BUN (7-17) mg/dL Creatinine (0.52-1.04) mg/dL Estimated GFR ML/MIN Glucose (74-106) mg/dL POC Glucometer (74 to 106) mg/dL Lactic Acid 2.0 (0.4-2.0) Calcium (8.4-10.2) mg/dL Phosphorus 3.0 (2.5-4.5) mg/dL Magnesium 1.5 L (1.6-2.3) mg/dL Total Bilirubin (0.2-1.3) mg/dL AST (14-36) U/L ALT (0-35) U/L Alkaline Phosphatase (38-126) U/L Troponin I < 0.012 (0.000-0.034) ng/mL Serum Total Protein (6.3-8.2) g/dL Albumin (3.5-5.0) g/dL Amylase (30-110) U/L Lipase (23-300) U/L Urine Color (Yellow) Urine Appearance (Clear) Urine pH (4.6-8.0) Ur Specific [place] (1.005-1.030) Urine Protein (Negative) Urine Glucose (UA) (Negative) mg/dL Urine Ketones (Negative) Urine Blood (Negative) Urine Nitrite (Negative) Urine Bilirubin (Negative) Urine Urobilinogen (0.2) mg/dL Ur Leukocyte Esterase (Negative) U Hyaline Cast (Auto) (0-2) /LPF Urine Microscopic RBC (0-5) /HPF Urine Microscopic WBC (0-5) /HPF Ur Epithelial Cells (None Seen) /HPF Urine Bacteria (None Seen) /HPF Urine Culture Reflexed (NO) Salicylates (2-20) mg/dL Urine Opiates Level (NEGATIVE) Ur Methadone (NEGATIVE) Acetaminophen (10-30) ug/ml Urine Barbiturates (NEGATIVE) Ur Phencyclidine (PCP) (NEGATIVE) Urine Amphetamine (NEGATIVE) U Benzodiazepine Level (NEGATIVE) Urine Cocaine (NEGATIVE) Urine Marijuana (THC) (NEGATIVE) Ethyl Alcohol (0-10) mg/dL Influenza Type A Ag (NEGATIVE) Influenza Type B Ag (NEGATIVE) RSV (PCR) (NEGATIVE) SARS-CoV-2 (PCR) (NEGATIVE) Slides for Path Review 12/26/22 12/26/22 12/26/22 Range/Units 18:00 22:00 Unknown WBC (4.0-10.5) x10^3/uL RBC (4.1-5.4) x10^6/uL Hgb (12.0-16.0) g/dL Hct (35-47) % MCV (78-100) fL MCH (26-32) pg MCHC (32-36) g/dL RDW (11.5-14.0) % Plt Count (150-450) x10^3/uL Gran % (36.0-66.0) % Immature Gran % (Auto) (0.00-0.4) % Nucleat RBC Rel Count (0.00-0.1) % Eos # (Auto) (0-0.5) x10^3/uL Immature Gran # (Auto) (0.00-0.03) x10^3u/L Absolute Lymphs (auto) (1.0-4.6) x10^3/uL Absolute Monos (auto) (0.0-1.3) x10^3/uL Absolute Nucleated RBC (0.00-0.01) x10^3u/L Lymphocytes % (24.0-44.0) % Monocytes % (0.0-12.0) % Eosinophils % (0.00-5.0) % Basophils % (0.0-0.4) % Absolute Granulocytes (1.4-6.9) x10^3/uL Basophils # (0-0.4) x10^3/uL Sodium (137-145) mmol/L Potassium 3.6 4.0 (3.5-5.1) mmol/L Chloride (98-107) mmol/L Carbon Dioxide (22-30) mmol/L Anion Gap (5-15) MEQ/L BUN (7-17) mg/dL Creatinine (0.52-1.04) mg/dL Estimated GFR ML/MIN Glucose (74-106) mg/dL POC Glucometer (74 to 106) mg/dL Lactic Acid (0.4-2.0) Calcium (8.4-10.2) mg/dL Phosphorus (2.5-4.5) mg/dL Magnesium (1.6-2.3) mg/dL Total Bilirubin (0.2-1.3) mg/dL AST (14-36) U/L ALT (0-35) U/L Alkaline Phosphatase (38-126) U/L Troponin I < 0.012 (0.000-0.034) ng/mL Serum Total Protein (6.3-8.2) g/dL Albumin (3.5-5.0) g/dL Amylase (30-110) U/L Lipase (23-300) U/L Urine Color (Yellow) Urine Appearance (Clear) Urine pH (4.6-8.0) Ur Specific [place] (1.005-1.030) Urine Protein (Negative) Urine Glucose (UA) (Negative) mg/dL Urine Ketones (Negative) Urine Blood (Negative) Urine Nitrite (Negative) Urine Bilirubin (Negative) Urine Urobilinogen (0.2) mg/dL Ur Leukocyte Esterase (Negative) U Hyaline Cast (Auto) (0-2) /LPF Urine Microscopic RBC (0-5) /HPF Urine Microscopic WBC (0-5) /HPF Ur Epithelial Cells (None Seen) /HPF Urine Bacteria (None Seen) /HPF Urine Culture Reflexed (NO) Salicylates (2-20) mg/dL Urine Opiates Level (NEGATIVE) Ur Methadone (NEGATIVE) Acetaminophen (10-30) ug/ml Urine Barbiturates (NEGATIVE) Ur Phencyclidine (PCP) (NEGATIVE) Urine Amphetamine (NEGATIVE) U Benzodiazepine Level (NEGATIVE) Urine Cocaine (NEGATIVE) Urine Marijuana (THC) (NEGATIVE) Ethyl Alcohol (0-10) mg/dL Influenza Type A Ag NEGATIVE (NEGATIVE) Influenza Type B Ag NEGATIVE (NEGATIVE) RSV (PCR) NEGATIVE (NEGATIVE) SARS-CoV-2 (PCR) NEGATIVE (NEGATIVE) Slides for Path Review 12/27/22 12/27/22 12/27/22 Range/Units 02:24 07:28 07:28 WBC 14.4 H (4.0-10.5) x10^3/uL RBC 5.33 (4.1-5.4) x10^6/uL Hgb 11.2 L (12.0-16.0) g/dL Hct 35.1 (35-47) % MCV 65.9 L (78-100) fL MCH 21.0 L (26-32) pg MCHC 31.9 L (32-36) g/dL RDW 14.4 H (11.5-14.0) % Plt Count 265 (150-450) x10^3/uL Gran % (36.0-66.0) % Immature Gran % (Auto) (0.00-0.4) % Nucleat RBC Rel Count (0.00-0.1) % Eos # (Auto) (0-0.5) x10^3/uL Immature Gran # (Auto) (0.00-0.03) x10^3u/L Absolute Lymphs (auto) (1.0-4.6) x10^3/uL Absolute Monos (auto) (0.0-1.3) x10^3/uL Absolute Nucleated RBC (0.00-0.01) x10^3u/L Lymphocytes % (24.0-44.0) % Monocytes % (0.0-12.0) % Eosinophils % (0.00-5.0) % Basophils % (0.0-0.4) % Absolute Granulocytes (1.4-6.9) x10^3/uL Basophils # (0-0.4) x10^3/uL Sodium (137-145) mmol/L Potassium 5.1 D (3.5-5.1) mmol/L Chloride (98-107) mmol/L Carbon Dioxide (22-30) mmol/L Anion Gap (5-15) MEQ/L BUN (7-17) mg/dL Creatinine (0.52-1.04) mg/dL Estimated GFR ML/MIN Glucose (74-106) mg/dL POC Glucometer (74 to 106) mg/dL Lactic Acid (0.4-2.0) Calcium (8.4-10.2) mg/dL Phosphorus (2.5-4.5) mg/dL Magnesium (1.6-2.3) mg/dL Total Bilirubin (0.2-1.3) mg/dL AST (14-36) U/L ALT (0-35) U/L Alkaline Phosphatase (38-126) U/L Troponin I (0.000-0.034) ng/mL Serum Total Protein (6.3-8.2) g/dL Albumin (3.5-5.0) g/dL Amylase (30-110) U/L Lipase (23-300) U/L Urine Color (Yellow) Urine Appearance (Clear) Urine pH (4.6-8.0) Ur Specific [place] (1.005-1.030) Urine Protein (Negative) Urine Glucose (UA) (Negative) mg/dL Urine Ketones (Negative) Urine Blood (Negative) Urine Nitrite (Negative) Urine Bilirubin (Negative) Urine Urobilinogen (0.2) mg/dL Ur Leukocyte Esterase (Negative) U Hyaline Cast (Auto) (0-2) /LPF Urine Microscopic RBC (0-5) /HPF Urine Microscopic WBC (0-5) /HPF Ur Epithelial Cells (None Seen) /HPF Urine Bacteria (None Seen) /HPF Urine Culture Reflexed (NO) Salicylates (2-20) mg/dL Urine Opiates Level (NEGATIVE) Ur Methadone (NEGATIVE) Acetaminophen (10-30) ug/ml Urine Barbiturates (NEGATIVE) Ur Phencyclidine (PCP) (NEGATIVE) Urine Amphetamine (NEGATIVE) U Benzodiazepine Level (NEGATIVE) Urine Cocaine (NEGATIVE) Urine Marijuana (THC) (NEGATIVE) Ethyl Alcohol < 10 (0-10) mg/dL Influenza Type A Ag (NEGATIVE) Influenza Type B Ag (NEGATIVE) RSV (PCR) (NEGATIVE) SARS-CoV-2 (PCR) (NEGATIVE) Slides for Path Review YES 12/27/22 Range/Units 07:28 WBC (4.0-10.5) x10^3/uL RBC (4.1-5.4) x10^6/uL Hgb (12.0-16.0) g/dL Hct (35-47) % MCV (78-100) fL MCH (26-32) pg MCHC (32-36) g/dL RDW (11.5-14.0) % Plt Count (150-450) x10^3/uL Gran % (36.0-66.0) % Immature Gran % (Auto) (0.00-0.4) % Nucleat RBC Rel Count (0.00-0.1) % Eos # (Auto) (0-0.5) x10^3/uL Immature Gran # (Auto) (0.00-0.03) x10^3u/L Absolute Lymphs (auto) (1.0-4.6) x10^3/uL Absolute Monos (auto) (0.0-1.3) x10^3/uL Absolute Nucleated RBC (0.00-0.01) x10^3u/L Lymphocytes % (24.0-44.0) % Monocytes % (0.0-12.0) % Eosinophils % (0.00-5.0) % Basophils % (0.0-0.4) % Absolute Granulocytes (1.4-6.9) x10^3/uL Basophils # (0-0.4) x10^3/uL Sodium 141 (137-145) mmol/L Potassium 5.1 (3.5-5.1) mmol/L Chloride 109 H (98-107) mmol/L Carbon Dioxide 20 L (22-30) mmol/L Anion Gap 17.5 H (5-15) MEQ/L BUN 9 (7-17) mg/dL Creatinine 0.45 L (0.52-1.04) mg/dL Estimated GFR > 60.0 ML/MIN Glucose 178 H (74-106) mg/dL POC Glucometer (74 to 106) mg/dL Lactic Acid (0.4-2.0) Calcium 8.6 (8.4-10.2) mg/dL Phosphorus 2.7 (2.5-4.5) mg/dL Magnesium 1.9 (1.6-2.3) mg/dL Total Bilirubin 1.20 (0.2-1.3) mg/dL AST 39 H (14-36) U/L ALT 29 (0-35) U/L Alkaline Phosphatase 112 (38-126) U/L Troponin I (0.000-0.034) ng/mL Serum Total Protein 6.8 (6.3-8.2) g/dL Albumin 3.8 (3.5-5.0) g/dL Amylase (30-110) U/L Lipase (23-300) U/L Urine Color (Yellow) Urine Appearance (Clear) Urine pH (4.6-8.0) Ur Specific [place] (1.005-1.030) Urine Protein (Negative) Urine Glucose (UA) (Negative) mg/dL Urine Ketones (Negative) Urine Blood (Negative) Urine Nitrite (Negative) Urine Bilirubin (Negative) Urine Urobilinogen (0.2) mg/dL Ur Leukocyte Esterase (Negative) U Hyaline Cast (Auto) (0-2) /LPF Urine Microscopic RBC (0-5) /HPF Urine Microscopic WBC (0-5) /HPF Ur Epithelial Cells (None Seen) /HPF Urine Bacteria (None Seen) /HPF Urine Culture Reflexed (NO) Salicylates (2-20) mg/dL Urine Opiates Level (NEGATIVE) Ur Methadone (NEGATIVE) Acetaminophen (10-30) ug/ml Urine Barbiturates (NEGATIVE) Ur Phencyclidine (PCP) (NEGATIVE) Urine Amphetamine (NEGATIVE) U Benzodiazepine Level (NEGATIVE) Urine Cocaine (NEGATIVE) Urine Marijuana (THC) (NEGATIVE) Ethyl Alcohol (0-10) mg/dL Influenza Type A Ag (NEGATIVE) Influenza Type B Ag (NEGATIVE) RSV (PCR) (NEGATIVE) SARS-CoV-2 (PCR) (NEGATIVE) Slides for Path Review Micro Results-Entire Visit: Microbiology 12/26/22 13:23 Urine Culture - Preliminary Catherized NO GROWTH TO DATE Accuchecks Date 12/26/22 Time 13:33 - Radiology Exams Ordered Rad Exams-Entire Visit: Radiology Procedures Category Date Time Status ABDOMEN AND PELVIS W/0 CONTRAS [CT] Stat Exams 12/26/22 13:26 Completed HEAD WITHOUT CONTRAST [CT] Stat Exams 12/26/22 13:37 Completed Discharge Exam General Appearance: severe distress Neurologic Exam: alert, oriented x 3, agitation Eye Exam: PERRL Ears, Nose, Throat Exam: normal ENT inspection Neck Exam: normal inspection Respiratory Exam: normal breath sounds, lungs clear Cardiovascular Exam: tachycardia Gastrointestinal/Abdomen Exam: tenderness Pelvic Exam: deferred Rectal Exam: deferred Back Exam: normal inspection Extremity Exam: normal inspection Skin Exam: normal color Final Diagnosis/Problem List - Final Discharge Diagnosis/Problem (1) Alcohol intoxication Current Visit: Yes Status: Acute (2) Suicidal behavior Current Visit: Yes Status: Acute Code(s): R45.89 - OTHER SYMPTOMS AND SIGNS INVOLVING EMOTIONAL STATE (3) Hypokalemia Current Visit: Yes Status: Acute Code(s): E87.6 - HYPOKALEMIA (4) Nausea vomiting and diarrhea Current Visit: Yes Status: Acute Code(s): R11.2 - NAUSEA WITH VOMITING, U NSPECIFIED; R19.7 - DIARRHEA, UNSPECIFIED (5) Interstitial cystitis Current Visit: Yes Status: Acute Code(s): N30.10 - INTERSTITIAL CYSTITIS (CHRONIC) WITHOUT HEMATURIA - Discharge Disposition: DC TO OTHER HOSP Condition: Fair Prescriptions: New HydrALAzine HCL 20 MG INJ [Apresoline 20 mg/ml Inj] 5 mg IV [id number] PRN PRN Reason: Hypertension Lorazepam 2 mg/1 ml [Ativan 2 MG/1 ML VIAL] 1 mg IV Q3H PRN PRN PRN Reason: Anxiety Folic Acid 1 mg [Folate 1 mg] 1 mg PO DAILY tablet Hydromorphone 1 mg/1Ml Inj [Hydromorphone 1 mg/ml Injection] 1 mg IV Q4H PRN PRN PRN Reason: Pain Pantoprazole 40 mg [Protonix 40 mg IV] 40 mg IV Q24H10 Thiamine HCl 200 mg/2 ml [Thiamine 200 mg/2 ml] 100 mg IV DAILY Ondansetron HCl 4 mg/2 ml [Zofran 4 MG/2 ML VIAL] 4 mg IV Q6H PRN PRN PRN Reason: Nausea/Vomiting Discontinued Gabapentin 600 mg PO TID Hydromorphone HCl [Dilaudid] 8 mg PO QID Promethazine HCl 12.5 mg PO Q6HPRN PRN PRN Reason: Nausea Follow up with: BAIRNO HICKEY MD [Primary Care Provider] -
[2022-12-27 11:50] VITALS: PULSE 106; TEMP 98.8
[2022-12-27] MEDS ORDERED: Haldol 5 MG IV PRN (11:53)
[2022-12-27] MEDS ORDERED: Sodium Chloride 0.9% 1000 ML 1,000 ML IV SCH (12:00)
== END 2022-12-27 14:53 ==
LOC: ED 12:48 → ICU 15:53
PROVIDERS: ADMIT Internal Medicine; ATTEND Internal Medicine
DX: F10.129 Alcohol abuse with intoxication, unspecified (principal); R45.851 Suicidal ideations; E87.6 Hypokalemia; R11.2 Nausea with vomiting, unspecified; N30.10 Interstitial cystitis (chronic) without hematuria; F32.A Depression, unspecified; Z79.899 Other long term (current) drug therapy; Z20.828 Contact with and (suspected) exposure to other viral communicable diseases; Z86.79 Personal history of other diseases of the circulatory system
CPT/HCPCS: 0241U; 36000; 36415; 51702; 70450; 74176; 80053; 80143; 80179; 80307; 81001; 82077; 82150; 82947; 83605; 83690; 83735; 84100; 84132; 84484; 85025; 85027; 87086; 93005; 93041; 96360; 96374; 96375; 99285; Q3014; 93268; G0378; J0360; J1170; J1630; J2060; J2405; A9270-GY; J3475